=== PATIENT | female | born 1960 | race Caucasian/White ===

== ENCOUNTER 2017-03-08 13:22 | Emergency (ER) | payer OTHER ==
[2017-03-08 13:37] VITALS: BP 124/74; PULSE 79; RESP 18; TEMP 97.9
--- NOTE | 2017-03-08 14:48 | ED ---
General Adult HPI - General Chief complaint: Back Pain/Injury Stated complaint: back pain; radiculopathy Time Seen by Provider: 03/08/17 14:39 Source: patient, RN notes reviewed Mode of arrival: ambulatory Limitations: no limitations - History of Present Illness Initial comments: 56-year-old female presents to the emergency Department chief complaint of back pain. Patient states she suffers from chronic back pain. Patient states that she had an MRI of her back, back specialist in their unable to do procedures on her. They referred her to a pain specialist but she cannot get in until March 18. Her family care doctor was prescribing her Wellington for the pain however he is no longer able to prescribe further narcotics due to the fact that she needs to see a pain specialist. Patient states that she just would like something for pain. Patient states it radiates down her left leg. Patient states is exactly like her chronic pain. Patient states there is no changes. Patient denies any recent fever, chills, shortness of breath, chest pain, back pain, abdominal pain, nausea vomiting, numbness or tingling, dysuria or hematuria, constipation or diarrhea, headaches or visual changes, or any other current symptoms. - Related Data Previous Rx's Medication Instructions Recorded Hydrocodone/Acetaminophen [Wellington 1 each PO Q6HR PRN #20 tab 03/08/17 5-325] Allergies Allergy/AdvReac Type Severity Reaction Status Date / Time bacitracin Allergy Rash/Hives Verified 03/08/17 13:38 [From Neosporin ([id number])] ibuprofen Allergy Anaphylaxis Verified 03/08/17 13:38 neomycin Allergy Rash/Hives Verified 03/08/17 13:38 [From Neosporin ([id number])] Penicillins Allergy Itching Verified 03/08/17 13:38 polymyxin B Allergy Rash/Hives Verified 03/08/17 13:38 [From Neosporin ([id number])] acetaminophen AdvReac Unknown Verified 03/08/17 13:38 [From Darvocet-N] aspirin AdvReac Unknown Verified 03/08/17 13:38 propoxyphene AdvReac Unknown Verified 03/08/17 13:38 [From Darvocet-N] Review of Systems ROS Statement: Those systems with pertinent positive or pertinent negative responses have been documented in the HPI. ROS Other: All systems not noted in ROS Statement are negative. Past Medical History Additional Past Medical History / Comment(s): back pain History of Any Multi-Drug Resistant Organisms: None Reported Past Surgical History: No Surgical Hx Reported Past Psychological History: No Psychological Hx Reported Smoking Status: Current every day smoker Past Alcohol Use History: Rare Past Drug Use History: None Reported General Exam Limitations: no limitations General appearance: alert, in no apparent distress Eye exam: Present: normal appearance, PERRL, EOMI. Absent: scleral icterus, conjunctival injection, periorbital swelling ENT exam: Present: normal exam, mucous membranes moist Neck exam: Present: normal inspection. Absent: tenderness, meningismus, lymphadenopathy Respiratory exam: Present: normal lung sounds bilaterally. Absent: respiratory distress, wheezes, rales, rhonchi, stridor Cardiovascular Exam: Present: regular rate, normal rhythm, normal heart sounds. Absent: systolic murmur, diastolic murmur, rubs, gallop, clicks Extremities exam: Present: normal inspection, full ROM, normal capillary refill. Absent: tenderness, pedal edema, joint swelling, calf tenderness Back exam: Present: normal inspection Neurological exam: Present: alert, oriented X3 Psychiatric exam: Present: normal affect, normal mood Skin exam: Present: warm, dry, intact, normal color. Absent: rash Course Vital Signs 03/08/17 13:35 Temperature 97.9 F Pulse Rate 79 Respiratory 18 Rate Blood Pressure 124/74 O2 Sat by Pulse 99 Oximetry Medical Decision Making - Medical Decision Making 56-year-old female presents for treatment for her chronic pain. Attends. Small prescription of antibiotics. We did discuss follow-up consolidation family's questions fairly stated the [facility] management given the plan. At this time they will be discharged home. Disposition Clinical Impression: Chronic back pain Disposition: HOME SELF-CARE Condition: Stable Instructions: Chronic Back Pain (ED) Additional Instructions: Please use medication as discussed. Please follow up with family doctor if symptoms have not improved over the next two days. Please return to the emergency room if your symptoms increase or worsen or for any other concerns. Prescriptions: Hydrocodone/Acetaminophen [Wellington 5-325] 1 each PO Q6HR PRN #20 tab PRN Reason: Pain Referrals: Oswaldo Austin DO [Primary Care Provider] - 1-2 days Time of Disposition: 14:48
== END 2017-03-08 15:07 | disposition home or self-care (01) ==
LOC: EC 13:22
DX: G89.29 Other chronic pain (principal); M54.9 Dorsalgia, unspecified; F17.200 Nicotine dependence, unspecified, uncomplicated; Z88.0 Allergy status to penicillin; Z88.1 Allergy status to other antibiotic agents; Z88.5 Allergy status to narcotic agent; Z88.6 Allergy status to analgesic agent
CPT/HCPCS: 99283

== ENCOUNTER 2021-12-20 13:17 | Emergency (ER) | payer OTHER ==
[2021-12-20 14:28] VITALS: RESP 18; TEMP 98.1
--- NOTE | 2021-12-20 14:34 | ED ---
General Adult HPI - General Source: patient, RN notes reviewed Mode of arrival: ambulatory Limitations: no limitations <Sb Douglass - Last Filed: 12/20/21 14:33> <Tony oCok - Last Filed: 12/20/21 18:59> - General Chief complaint: Upper Respiratory Infection Stated complaint: Congestion, Cough, Diarrhea Time Seen by Provider: 12/20/21 14:02 - History of Present Illness Initial comments: This a 61-year-old female presents emergency Department chief complaint of cough and cold like symptoms 11 days. Patient states that she initially thought she had cold that she has not tested states that she got frightened now states that she has productive cough with green sputum, nasal congestion, nausea. She states she's had cold chills without known fever. Patient states she has no known lung disease though she states she just stopped smoking 12 days ago. Patient denies any sick contacts she states she feels very fatigued no chest pain. No palpitations. (Sb Douglass) Patient states that she has had cough and congestion since Father's Day. She states that she has been nauseated with brown watery diarrhea for the past 11 days. Also decreased appetite and now feels fatigued. States that she quit smoking when she got sick but was smoking a pack a day for several years. She denies any health problems. She did not get vaccinated against coronavirus and is positive here in the emergency room today. (Tony Cook) - Related Data Home Medications Medication Instructions Recorded Confirmed Black Cohosh 540 mg PO DAILY 12/20/21 12/20/21 Cholecalciferol [Vitamin D3 (25 25 mcg PO DAILY 12/20/21 12/20/21 Mcg = 1000 Iu)] HYDROcodone/APAP 10-325MG [Banner 1 tab PO QID PRN 12/20/21 12/20/21 10-325] Previous Rx's Medication Instructions Recorded Azithromycin [Zithromax] 500 mg PO DAILY 3 Days #3 tab 12/20/21 Allergies Allergy/AdvReac Type Severity Reaction Status Date / Time bacitracin Allergy Rash/Hives Verified 12/20/21 17:36 [From Neosporin ([id number])] ibuprofen Allergy Anaphylaxis Verified 12/20/21 17:36 neomycin Allergy Rash/Hives Verified 12/20/21 17:36 [From Neosporin ([id number])] Penicillins Allergy Anaphylaxis Verified 12/20/21 17:36 polymyxin B Allergy Rash/Hives Verified 12/20/21 17:36 [From Neosporin ([id number])] aspirin AdvReac Unknown Verified 12/20/21 17:36 propoxyphene AdvReac Unknown Verified 12/20/21 17:36 [From Darvocet-N] Review of Systems ROS Other: All systems not noted in ROS Statement are negative. <Sb Douglass - Last Filed: 12/20/21 14:33> ROS Other: All systems not noted in ROS Statement are negative. <Tony Cook - Last Filed: 12/20/21 18:59> ROS Statement: Those systems with pertinent positive or pertinent negative responses have been documented in the HPI. Past Medical History Additional Past Medical History / Comment(s): back pain History of Any Multi-Drug Resistant Organisms: None Reported Past Surgical History: No Surgical Hx Reported Past Psychological History: No Psychological Hx Reported Past Alcohol Use History: Rare Past Drug Use History: None Reported <Sb Douglass - Last Filed: 12/20/21 14:33> General Exam Limitations: no limitations General appearance: alert, in no apparent distress Head exam: Present: atraumatic, normocephalic, normal inspection Eye exam: Present: normal appearance, PERRL, EOMI. Absent: scleral icterus, conjunctival injection, periorbital swelling ENT exam: Present: mucous membranes moist, TM's normal bilaterally, normal external ear exam. Absent: normal oropharynx (Post nasal drainage) Neck exam: Present: normal inspection. Absent: tenderness, meningismus, lymphadenopathy Respiratory exam: Present: normal lung sounds bilaterally, decreased breath sounds. Absent: respiratory distress, wheezes, rales, rhonchi, stridor, prolonged expiratory Cardiovascular Exam: Present: regular rate, normal rhythm, normal heart sounds. Absent: systolic murmur, diastolic murmur, rubs, gallop, clicks GI/Abdominal exam: Present: soft, normal bowel sounds. Absent: distended, tenderness, guarding, rebound, rigid <Sb Douglass - Last Filed: 12/20/21 14:33> ENT exam: Present: normal oropharynx Respiratory exam: Absent: accessory muscle use, decreased breath sounds Extremities exam: Present: normal capillary refill. Absent: tenderness, pedal edema, calf tenderness Back exam: Absent: tenderness, CVA tenderness (R), CVA tenderness (L), rash noted Neurological exam: Present: alert, oriented X3 Psychiatric exam: Present: normal affect, normal mood Skin exam: Present: warm, dry, normal color. Absent: cyanosis, diaphoretic <Tony Cook - Last Filed: 12/20/21 18:59> Course Vital Signs 12/20/21 12/20/21 14:23 18:38 Temperature 98.1 F Pulse Rate 98 94 Respiratory 18 18 Rate Blood Pressure 108/70 114/61 O2 Sat by Pulse 98 96 Oximetry Medical Decision Making - Lab Data Result diagrams: 12/20/21 17:00 12/20/21 17:00 <Tony Cook - Last Filed: 12/20/21 18:59> - Medical Decision Making Patient presents with 11 days of productive green cough and congestion. She is positive for coronavirus She denies any other medical history. She is a pack-a-day smoker but quit smoking when she got sick 11 days ago. X-ray shows hyperinflation compatible with COPD. No evidence of infiltrate. There is also a 1.4cm RUL pulmonary nodule noted. Patient was notified of nodule and counseled on the importance of following up with her primary care doctor for reevaluation and monitoring of nodule. Patient and family member are agreeable and stated understanding. Due to patient's smoking history, XR compatible with COPD and productive cough with green sputum, she was placed on Zithromax. She was also given some Zofran starter pack for nausea. She states that she is feeling better after the IV fluids and Zofran. Lungs s ounds are clear and oxygen saturation is 98% on room air. She was encouraged to increase her fluid intake. Directed return to emergency room with any new concerning symptoms patient and family agreeable to this plan of care. Case discussed with Dr. Polanco. (Tony Cook) - Lab Data Lab Results 12/20/21 12/20/21 12/20/21 Range/Units 14:34 14:34 16:59 WBC (3.8-10.6) k/uL RBC (3.80-5.40) m/uL Hgb (11.4-16.0) gm/dL Hct (34.0-46.0) % MCV (80.0-100.0) fL MCH (25.0-35.0) pg MCHC (31.0-37.0) g/dL RDW (11.5-15.5) % Plt Count (150-450) k/uL MPV Neutrophils % % Lymphocytes % % Monocytes % % Eosinophils % % Basophils % % Neutrophils # (1.3-7.7) k/uL Lymphocytes # (1.0-4.8) k/uL Monocytes # (0-1.0) k/uL Eosinophils # (0-0.7) k/uL Basophils # (0-0.2) k/uL Sodium (137-145) mmol/L Potassium (3.5-5.1) mmol/L Chloride (98-107) mmol/L Carbon Dioxide (22-30) mmol/L Anion Gap mmol/L BUN (7-17) mg/dL Creatinine (0.52-1.04) mg/dL Est GFR (CKD-EPI)AfAm (>60 ml/min/1.73 sqM) Est GFR (CKD-EPI)NonAf (>60 ml/min/1.73 sqM) Glucose (74-99) mg/dL Calcium (8.4-10.2) mg/dL Total Bilirubin (0.2-1.3) mg/dL AST (14-36) U/L ALT (4-34) U/L Alkaline Phosphatase (38-126) U/L Total Protein (6.3-8.2) g/dL Albumin (3.5-5.0) g/dL Amylase (30-110) U/L Lipase (23-300) U/L Urine Color Yellow Urine Appearance Cloudy H (Clear) Urine pH 6.0 (5.0-8.0) Ur Specific Hazlet 1.036 H (1.001-1.035) Urine Protein 2+ H (Negative) Urine Glucose (UA) Negative (Negative) Urine Ketones 2+ H (Negative) Urine Blood Negative (Negative) Urine Nitrite Negative (Negative) Urine Bilirubin Negative (Negative) Urine Urobilinogen 3.0 (<2.0) mg/dL Ur Leukocyte Esterase Small H (Negative) Urine RBC 7 H (0-5) /hpf Urine WBC 7 H (0-5) /hpf Ur Squamous Epith Cells 3 (0-4) /hpf Urine Mucus Many H (None) /hpf Coronavirus (PCR) Detected A (Not Detectd) Influenza Type A RNA Not Detected (Not Detectd) Influenza Type B (PCR) Not Detected (Not Detectd) 12/20/21 12/20/21 Range/Units 17:00 17:00 WBC 15.0 H (3.8-10.6) k/uL RBC 4.10 (3.80-5.40) m/uL Hgb 13.7 (11.4-16.0) gm/dL Hct 39.5 (34.0-46.0) % MCV 96.5 (80.0-100.0) fL MCH 33.5 (25.0-35.0) pg MCHC 34.7 (31.0-37.0) g/dL RDW 11.5 (11.5-15.5) % Plt Count 261 (150-450) k/uL MPV 8.6 Neutrophils % 80 % Lymphocytes % 14 % Monocytes % 4 % Eosinophils % 1 % Basophils % 1 % Neutrophils # 12.0 H (1.3-7.7) k/uL Lymphocytes # 2.1 (1.0-4.8) k/uL Monocytes # 0.6 (0-1.0) k/uL Eosinophils # 0.1 (0-0.7) k/uL Basophils # 0.1 (0-0.2) k/uL Sodium 138 (137-145) mmol/L Potassium 3.7 (3.5-5.1) mmol/L Chloride 103 (98-107) mmol/L Carbon Dioxide 23 (22-30) mmol/L Anion Gap 12 mmol/L BUN 7 (7-17) mg/dL Creatinine 0.56 (0.52-1.04) mg/dL Est GFR (CKD-EPI)AfAm >90 (>60 ml/min/1.73 sqM) Est GFR (CKD-EPI)NonAf >90 (>60 ml/min/1.73 sqM) Glucose 118 H (74-99) mg/dL Calcium 9.1 (8.4-10.2) mg/dL Total Bilirubin 1.4 H (0.2-1.3) mg/dL AST 25 (14-36) U/L ALT 21 (4-34) U/L Alkaline Phosphatase 93 (38-126) U/L Total Protein 7.5 (6.3-8.2) g/dL Albumin 4.6 (3.5-5.0) g/dL Amylase 51 (30-110) U/L Lipase 41 (23-300) U/L Urine Color Urine Appearance (Clear) Urine pH (5.0-8.0) Ur Specific Haz[place] (1.001-1.035) Urine Protein (Negative) Urine Glucose (UA) (Negative) Urine Ketones (Negative) Urine Blood (Negative) Urine Nitrite (Negative) Urine Bilirubin (Negative) Urine Urobilinogen (<2.0) mg/dL Ur Leukocyte Esterase (Negative) Urine RBC (0-5) /hpf Urine WBC (0-5) /hpf Ur Squamous Epith Cells (0-4) /hpf Urine Mucus (None) /hpf Coronavirus (PCR) (Not Detectd) Influenza Type A RNA (Not Detectd) Influenza Type B (PCR) (Not Detectd) Disposition <Sb Douglass - Last Filed: 12/20/21 14:33> Is patient prescribed a controlled substance at d/c from ED?: No Time of Disposition: 17:50 <Tony Cook - Last Filed: 12/20/21 18:59> Clinical Impression: COVID-19, Diarrhea, Pulmonary nodule 1 cm or greater in diameter, Bronchitis Disposition: HOME SELF-CARE Condition: Good Instructions (If sedation given, give patient instructions): Acute Diarrhea (ED), COVID-19 (Coronavirus Disease 2019) (ED) Additional Instructions: Increase your fluid intake. Take antibiotics as prescribed and stop smoking. Follow-up with the primary care doctor regarding lung nodule in your right upper lung. Return to the emergency room with any new or concerning symptoms including difficulty breathing, or persistent nausea vomiting. Prescriptions: Azithromycin [Zithromax] 500 mg PO DAILY 3 Days #3 tab Referrals: None,Stated [Primary Care Provider] - 1-2 days
--- NOTE | 2021-12-20 15:08 | XR ---
EXAMINATION TYPE: XR chest 2V DATE OF EXAM: 12/20/2021 COMPARISON: NONE HISTORY: Shortness of breath TECHNIQUE: Frontal and lateral views of the chest are obtained. FINDINGS: Scattered senescent parenchymal changes noted. Hyperinflation compatible with COPD. No evidence for infiltrate. No evidence for atelectasis. 1.4 cm right upper lobe pulmonary nodule. Fu rther evaluation with CT is advised. Heart size is stable. Mediastinal structures are stable and grossly unremarkable. No evidence for hilar prominence. Degenerative changes dorsal spine. IMPRESSION: 1.4 cm right upper lobe pulmonary nodule. Further evaluation with CT is advised.
[2021-12-20] MEDS ORDERED: SODIUM CHLORIDE 0.9% 500 ML 500 ML IV STA (15:40)
[2021-12-20] MEDS ORDERED: ONDANSETRON 4 MG/2 ML VIAL IVP STA (16:25)
[2021-12-20 17:16] LABS: Basophils # (A) 0.1 k/uL (0-0.2); Basophils % (A) 1 %; Eosinophils # (A) 0.1 k/uL (0-0.7); Eosinophils % (A) 1 %; HCT 39.5 % (34.0-46.0); HGB 13.7 gm/dL (11.4-16.0); Lymphocytes # (A) 2.1 k/uL (1.0-4.8); Lymphocytes % (A) 14 %; MCH 33.5 pg (25.0-35.0); MCHC 34.7 g/dL (31.0-37.0); MCV 96.5 fL (80.0-100.0); Mean Platelet Volume 8.6; Monocytes # (A) 0.6 k/uL (0-1.0); Monocytes % (A) 4 %; Neutrophils % (A) 80 %; Platelet Count 261 k/uL (150-450); RDW 11.5 % (11.5-15.5)
[2021-12-20 17:25] LABS: ALT 21 U/L (4-34); AST 25 U/L (14-36); African American GFR (CKD) >90 (>60 ml/min/1.73 sqM); Albumin 4.6 g/dL (3.5-5.0); Alkaline Phosphatase 93 U/L (38-126); Amylase 51 U/L (30-110); Anion Gap 12 mmol/L; Blood Urea Nitrogen 7 mg/dL (7-17); Calcium 9.1 mg/dL (8.4-10.2); Carbon Dioxide 23 mmol/L (22-30); Chloride 103 mmol/L (98-107); Glucose 118 mg/dL (74-99); Lipase 41 U/L (23-300); Non-African American GFR(CKD) >90 (>60 ml/min/1.73 sqM); Potassium 3.7 mmol/L (3.5-5.1); Sodium 138 mmol/L (137-145); Total Bilirubin 1.4 mg/dL (0.2-1.3); Total Protein 7.5 g/dL (6.3-8.2)
[2021-12-20 17:25] LABS: Appearance,Urine Cloudy (Clear); Bilirubin,Urine Negative (Negative); Blood,Urine Negative (Negative); Color,Urine Yellow; Glucose,Urine (UA) Negative (Negative); Ketones,Urine 2+ (Negative); Leukocyte Esterase,Urine Small (Negative); Mucus,Urine Many /hpf; Nitrite,Urine Negative (Negative); Protein,Urine 2+ (Negative); RBC,Urine 7 /hpf (0-5); Specific Gravity,Urine 1.036 (1.001-1.035); Squamous Epithelial Cell,Urine 3 /hpf (0-4); WBC,Urine 7 /hpf (0-5)
[2021-12-20] MEDS ORDERED: ONDANSETRON 4 MG ODT STARTER PACK 2 TAB BTL PO STA (17:51)
[2021-12-20 18:39] VITALS: BP 114/61; PULSE 94
== END 2021-12-20 18:39 | disposition home or self-care (01) ==
LOC: EC 13:17
DX: U07.1 COVID-19 (principal); R19.7 Diarrhea, unspecified; Z88.6 Allergy status to analgesic agent; Z88.0 Allergy status to penicillin; Z91.018 Allergy to other foods; Z88.1 Allergy status to other antibiotic agents
CPT/HCPCS: 99284; 96374; 96361; 36415; 80053; 82150; 83690; 85025; 81001; 87502; 87635; 71046; J2405; S0119

== ENCOUNTER → 2022-01-29 | Outpatient (CLI) | payer OTHER ==
--- NOTE | 2022-01-29 10:19 | XR ---
EXAMINATION TYPE: XR wrist limited RT DATE OF EXAM: 01/29/2022 CLINICAL HISTORY: pain TECHNIQUE: Frontal, lateral images of the right wrist are obtained. COMPARISON: None. FINDINGS: There is no acute fracture/dislocation evident. The joint spaces appear within normal limits. The o verlying soft tissue appears unremarkable. IMPRESSION: There is no acute fracture or dislocation seen. ICD 10 NO FRACTURE, INITIAL EVALUATION
--- NOTE | 2022-01-29 10:21 | XR ---
EXAMINATION TYPE: XR hand limited RT DATE OF EXAM: 01/29/2022 CLINICAL HISTORY: pain TECHNIQUE: Frontal, lateral and oblique images of the right hand are obtained. COMPARISON: None. FINDINGS: There is no acute fracture/dislocation evident. The joint spaces appear within normal limi ts. The overlying soft tissue appears unremarkable. IMPRESSION: There is no acute fracture or dislocation ICD 10 NO FRACTURE, INITIAL EVALUATION
== END | disposition home or self-care (01) ==
LOC: RADXRMAIN 09:58
PROVIDERS: ATTEND Family Medicine
DX: M25.531 Pain in right wrist (principal); M79.641 Pain in right hand; W19.XXXA Unspecified fall, initial encounter

== ENCOUNTER → 2022-02-28 | Outpatient (CLI) | payer OTHER ==
--- NOTE | 2022-03-01 09:28 | CTL ---
EXAMINATION TYPE: CT Low Dose Lung DATE OF EXAM ORDERED: 02/28/2022 HISTORY: . Lung cancer screening CT DLP: 55.[address] CTDI: 1.60 mGy Automated exposure control for dose reduction was used. None SCREENING VISIT: COMPARISON: TECHNIQUE: Low dose computed tomography scan was performed through the chest at 1 mm thick sections a nd reconstructed images in multiple planes at 1 mm and [address] DIAGNOSTIC QUALITY: Satisfactory FINDINGS: There is biapical pleural thickening. There is a suspicious solid appearing spiculated mass right lung apex measuring 1.7 cm. No definite p athologic adenopathy There is a 5 to 6 mm nodule left upper lobe on image 112. Additional scattered 5 mm nodule in the ant erior segment left upper lobe and superior segment left lower lobe. 5 mm nodule is 29 right middle lo be No pleural effusion or pneumothorax. No focal pneumonia. Hypertrophic and degenerative changes spine. A basilar and central bronchiectasis noted. Aorta of normal caliber. Size normal. Mild coronary artery calcification. Structures of the upper abd omen demonstrate no definite abnormality. Suspect a large simple appearing cyst involving the left la teral kidney measuring 15 Hounsfield units and 3.4 cm IMPRESSION: 1. Highly suspicious 1.7 cm mass right lung apex suggestive of malignancy. 2. Additional subcentimeter nodules have somewhat vague pattern and morphology may be postinflammator y. 3. COPD CT LUNG RAD AND CT CHEST RECOMMENDATION: Lung-Rad 4B or 4X Very Suspicious: Follow-up PET/CT recomme nded. S Modifier (other clinically significant findings): S
== END | disposition home or self-care (01) ==
LOC: RADCTMAIN 12:15
PROVIDERS: ATTEND Family Medicine
DX: Z12.2 Encounter for screening for malignant neoplasm of respiratory organs (principal); J43.9 Emphysema, unspecified; R91.8 Other nonspecific abnormal finding of lung field; Z87.891 Personal history of nicotine dependence
CPT/HCPCS: 71271

== ENCOUNTER → 2022-03-15 | Outpatient (CLI) | payer OTHER ==
--- NOTE | 2022-03-15 13:34 | PE ---
EXAMINATION TYPE: PET CT fusion skull to thigh DATE OF EXAM: 03/15/2022 CLINICAL INDICATION:Female, 61 years old with history of R91.1 Lung nodule; TECHNIQUE: Following the intravenous administration of 3.2 mCi of F-18 FDG, whole body images are p erformed from the skull base to the midthigh. Images are reviewed on the computer in the coronal, ax ial, and sagittal planes. Reconstructed rotating images are created on independent workstation and r eviewed on the computer. A non-contrast CT is performed in conjunction with the PET scan. Glucose l evel 111 mg/dL COMPARISON: CT 02/28/2022, PET/CT None, FINDINGS: Mediastinal SUV mean is 1.4 Hepatic parenchyma SUV mean is 2.0. SKULL BASE AND NECK: No suspicious FDG activity. CHEST, MEDIASTINUM, AND HILAR REGION: * Right upper lung mass measuring 1.7 cm with max SUV 7.9. * No increased FDG activity within mediastinal lymph nodes. ABDOMEN AND PELVIS: No suspicious FDG activity. OSSEOUS STRUCTURES: No suspicious FDG activity. OTHER CT: Sclerosis of the coronary arteries and arterial vasculature. Few scattered clonic diverticu la present. Moderate emphysema changes in lung apices. The heart is mildly enlarged for size. IMPRESSION: Right upper lung mass metabolic activity consistent with primary malignancy. No evidence of metastati c disease at this time.
== END | disposition home or self-care (01) ==
LOC: RADPETMAIN 07:56
PROVIDERS: ATTEND Internal Medicine
DX: R91.8 Other nonspecific abnormal finding of lung field (principal)
CPT/HCPCS: 78815; A9552

== ENCOUNTER 2022-03-21 12:19 | Day surgery (SDC) | payer OTHER ==
[2022-03-20 12:06] VITALS: BMI 22.3
[~2022-03-21 12:19] MED LIST: ALBUTEROL NEB (CONC) 2.5 MG/0.5 ML INHALATION ONE; DEXAMETHASONE SOD PHOSPHATE 4 MG/ML 1 ML VIAL IV ONE; LIDOCAINE 1% (10MG/ML) FOR IV START INTRADERMA PRN; LIDOCAINE 2% (PF) 20 MG/ML 5 ML VIAL INHALATION ONE; LIDOCAINE VISCOUS 300 MG/15 ML CUP MUCOUS MEM ONE; SODIUM CHLORIDE 0.9% 1,000 ML IV SCH; fentaNYL (PF) 50 MCG/ML 2 ML AMP IV PRN
[2022-03-21] MEDS: LACTATED RINGERS 1,000 ML IV SCH ×2 (13:14→14:05)
--- NOTE | 2022-03-21 13:50 | CT ---
EXAMINATION TYPE: CT Chest drew Brennan Protocol DATE OF EXAM: 03/21/2022 COMPARISON: 03/15/2022, 92,020 HISTORY: bronchial navagation CT DLP: 642 mGycm Automated exposure control for dose reduction was used. FINDINGS: Limited exam is performed for preprocedural planning. FINDINGS: There is biapical pleural thickening. There is a suspicious solid appearing spiculated mass right lung apex measuring 1.7 cm. No definite pathologic adenopathy There is a 5 to 6 mm nodule left upper lobe. Additional scattered 5 mm nodule in the anterior segment left upper lobe and superior segment left lower lobe. 5 mm nodule right middle lobe No pleural effusion or pneumothorax. No focal pneumonia. Hypertrophic and degenerative changes spine. A basilar and central bronchiectasis noted. Aorta of nor mal caliber. Size normal. Mild coronary artery calcification. Structures of the upper abdomen demonstrate 0.8 cm left adrenal nodule. Suspect a large simple appear ing cyst involving the left kidney measuring 15 Hounsfield units and 3.4 cm IMPRESSION: 1. Highly suspicious 1.7 cm mass right lung apex suggestive of malignancy. 2. Additional subcentimeter nodules have somewhat vague pattern and morphology may be postinflammator y. 3. COPD . 4. Indeterminate 0.8 cm left adrenal nodule.
[2022-03-21] MEDS ORDERED: fentaNYL (PF) 50 MCG/ML 2 ML AMP ONE (14:07)
[2022-03-21] MEDS ORDERED: PHENYLEPHRINE-0.9% NACL SYG 1,000 MCG/10 ML SYRINGE ONE (14:07)
[2022-03-21] MEDS ORDERED: LIDOCAINE 4% LTA KIT (4 ML) TOPICAL ONE (14:07)
[2022-03-21] MEDS ORDERED: PROPOFOL 10 MG/ML 20 ML VIAL IV ONE (14:07)
[2022-03-21] MEDS ORDERED: LIDOCAINE 2% INJ 20 MG/ML (2 ML VIAL) ONE (14:07)
[2022-03-21] MEDS ORDERED: SUCCINYLCHOLINE CHLORIDE 200 MG/10 ML VIAL IV ONE (14:07)
[2022-03-21] MEDS ORDERED: KETAMINE 10 MG/ML 20 ML VIAL ONE (14:07)
--- NOTE | 2022-03-21 15:08 | P.PCN ---
Date of Procedure: 03/21/22 Preoperative Diagnosis: Right upper lobe mass Postoperative Diagnosis: Right upper lobe mass, mediastinal lymphadenopathy Procedure(s) Performed: Navigation bronchoscopy, transbronchial biopsy, transbronchial brushing and the bronchioloalveolar lavage of the right upper lobe mass EBUS bronchoscopy, bronchioloalveolar lavage of the right upper lobe Anesthesia: MICK Surgeon: Balbir Conroy Carpenter Helper #1: Dariela Houston Estimated Blood Loss (ml): 0 Pathology: other Condition: stable Disposition: same day Operative Findings: The patient had a preoperative computed tomography scan of the chest using the Veran protocol. The CAT scan images were reviewed. The right upper lobe opacity was identified it was mapped appropriately. The CAT scan images are uploaded into a USB and then into the [employer] Navigation tower. After obtaining the consent the patient was taken to the OR suite he was intubated and put on mechanical ventilation by anesthesia then the scope was advanced to the ET tube until the Trachea was seen and it was normal and then the zaria appears normal then the scope advanced to the left main and NISHI LB1- LB3 were seen and no endobronchial lesions were seen then the scope advanced to the lingula and the LB4 and LB5 were seen and no endobronchial lesions were seen the scope retracted and advanced to the left lower lobes LB6 to LB12 were seen one by one and no endobronchial lesions, then the scope was retracted back to the zaria and advanced to the Right main and RUL RB1 and RB2 and RB3 were seen one by one and no endobronchial lesions were seen the scope. The bronchoscope was then retracted and advanced to the BI and RML RB4 and RB5 were seen and no endobronchial lesions were seen then it was retracted and advanced to the RLL RB6 to RB12 were seen one by one and no endobronchial lesions. Navigation bronchoscopy was performed. The main zaria and the secondary zaria on the left were used as the reference points and appropriate calibration was done. Following that, using a navigation guidance , the bronchoscope was advanced to the right upper lobe anterior segment and various transbronchial biopsies and transbronchial brushings of the right upper lobe opacity was done without any complications. The bronchioloalveolar lavage of the right upper lobe was not given a total of 100 mL of fluid was infused and 23 was aspirated. Following that, the flexible bronchoscope was removed and the EBUS was introdu ignacia. The EBUS was used and the lymph nodes were examined. Direct measurement of the mediastinal lymph nodes included station for L, 10 L, 4R, 10 R and 11 are superior and inferior and the lymph nodes and all of the stations were nonenlarged and all of them were less than 5 mm in size. There was a irregular shape subcarinal lymph node, station 7 measuring 17 x 19 mm in size. Transbronchial needle aspirate of the subcarinal lymph node was done using EBUS guidance, using a 19-gauge needle.. The samples were sent for a evaluation subluxed. The EBUS bronchoscope was removed and the procedure was terminated. The patient was extubated and transferred to recovery in stable condition. Chest x-rays to follow. Discharge per anesthesia.
[2022-03-21 15:29] VITALS: TEMP 97
[2022-03-21 15:40] VITALS: RESP 16
--- NOTE | 2022-03-21 15:49 | XR ---
EXAMINATION TYPE: XR chest 1V DATE OF EXAM: 03/21/2022 COMPARISON: 12/20/2021, CT 03/21/2022 INDICATION: Pulmonary nodules TECHNIQUE: Single frontal view of the chest is obtained. FINDINGS: The heart size is normal. The pulmonary vasculature is normal. Diffuse infiltrates through the right upper lobe. The pulmonary nodule in the right upper lung field is not well-visualized on this exam. There is an additional infiltrate in the right lower lobe. IMPRESSION: 1. No pneumothorax post bronchoscopy. 2. Infiltrates in the right upper and lower lobes.
[2022-03-21 16:52] VITALS: BP 131/79; PULSE 81
== END 2022-03-21 17:07 | disposition home or self-care (01) ==
LOC: ORWHC2ENDO 12:19
PROVIDERS: ATTEND Internal Medicine Critical Care Medicine
DX: R91.1 Solitary pulmonary nodule (principal); R59.0 Localized enlarged lymph nodes; J44.9 Chronic obstructive pulmonary disease, unspecified; Z88.0 Allergy status to penicillin; Z88.8 Allergy status to other drugs, medicaments and biological substances
CPT/HCPCS: 31624; 31628; 31653; 88108; 88305; 88342; 88341; 71045; 71250; 31623; 31627; J0330; J3010; J2370; J2704; J2001; 31625; 31633

== ENCOUNTER → 2022-03-28 | Outpatient (CLI) | payer OTHER ==
[2022-03-28 11:36] LABS: Partial Thromboplastin Time 24.7 sec (22.0-30.0); Prothrombin Time 10.5 sec (9.0-12.0)
[2022-03-28 14:32] LABS: Basophils # (A) 0.09 X 10*3/uL (0.00-0.10); Basophils % (A) 1.2 %; Eosinophils % (A) 2.6 %; HCT 36.8 % (37.2-46.3); HGB 12.9 g/dL (12.0-15.0); Immature Grans, Automated 0.1 %; Lymphocytes # (A) 2.41 X 10*3/uL (0.90-5.00); MCH 32.5 pg (27.0-32.0); MCHC 35.1 g/dL (32.0-37.0); MCV 92.7 fL (80.0-97.0); Mean Platelet Volume 10.3 fL (9.5-12.2); Monocytes # (A) 0.51 X 10*3/uL (0.20-1.00); Monocytes % (A) 6.6 %; NRBC Per 100 WBC 0 /100 WBCS (0.0-0.0); Neutrophils # (A) 4.55 X 10*3/uL (1.80-7.70); Neutrophils % (A) 58.5 %; Platelet Count 310 X 10*3/uL (140-440); RBC 3.97 X 10*6/uL (4.10-5.20); RDW 11.8 % (11.5-14.5); WBC 7.77 X 10*3/uL (4.50-10.00)
[2022-03-28 15:09] LABS: African American GFR (CKD) 97.5 (60.0-200.0); Anion Gap 13.4 mmol/L (10.00-18.00); Blood Urea Nitrogen 11.9 mg/dL (9.0-27.0); Carbon Dioxide 25.8 mmol/L (20.0-27.5); Non-African American GFR(CKD) 84.1 (60.0-200.0); Potassium 4.5 mmol/L (3.5-5.5)
== END | disposition home or self-care (01) ==
LOC: LABPAT 10:27
PROVIDERS: ATTEND Thoracic Surgery (Cardiothoracic Vascular Surgery)
DX: Z01.818 Encounter for other preprocedural examination (principal); R91.1 Solitary pulmonary nodule; R94.31 Abnormal electrocardiogram [ECG] [EKG]
CPT/HCPCS: 80051; 82565; 82947; 84520; 85025; 85610; 85730; 93005

== ENCOUNTER 2022-04-04 05:44 | Inpatient (IN) | payer OTHER ==
[2022-04-04] MEDS ORDERED: ONDANSETRON 4 MG/2 ML VIAL ONE (06:06)
[2022-04-04] MEDS ORDERED: ONDANSETRON 4 MG/2 ML VIAL IVP ONE (06:22)
[2022-04-04] MEDS ORDERED: LACTATED RINGERS 1,000 ML IV SCH (06:22)
[2022-04-04] MEDS ORDERED: DEXAMETHASONE SOD PHOSPHATE 4 MG/ML 1 ML VIAL IV ONE (06:22)
[2022-04-04] MEDS ORDERED: LACTATED RINGERS 1,000 ML IV ONE ×3 (06:25→10:55)
[2022-04-04] MEDS ORDERED: MIDAZOLAM 2 MG/2 ML VIAL IVP ONE (06:55)
[2022-04-04] MEDS ORDERED: CLINDAMYCIN 900 MG in DEXTROSE 5% IN WATER 50 ML IVPB ONE ×2 (07:00)
[2022-04-04] MEDS ORDERED: DEXAMETHASONE SOD PHOSPHATE 4 MG/ML 1 ML VIAL ONE (07:25)
[2022-04-04] MEDS ORDERED: HYDROmorphone (PF) 1 MG/ML ONE (07:25)
[2022-04-04] MEDS ORDERED: fentaNYL (PF) 50 MCG/ML 2 ML AMP ONE (07:25)
[2022-04-04] MEDS ORDERED: PHENYLEPHRINE-0.9% NACL SYG 1,000 MCG/10 ML SYRINGE ONE (07:25)
[2022-04-04] MEDS ORDERED: ROPIVACAINE 5 MG/ML 30 ML VIAL ONE (07:25)
[2022-04-04] MEDS ORDERED: ROCURONIUM 10 MG/ML (5 ML VIAL) IV ONE (07:25)
[2022-04-04] MEDS ORDERED: LIDOCAINE 2% INJ 20 MG/ML (2 ML VIAL) ONE (07:25)
[2022-04-04] MEDS ORDERED: NEOSTIGMINE 1 MG/ML 10 ML VIAL ONE (07:25)
[2022-04-04] MEDS ORDERED: SODIUM CHLORIDE 0.9% (PF) 10 ML VIAL ONE (07:25)
[2022-04-04] MEDS ORDERED: SUCCINYLCHOLINE CHLORIDE 200 MG/10 ML VIAL IV ONE (07:25)
[2022-04-04] MEDS ORDERED: PROPOFOL 10 MG/ML 20 ML VIAL IV ONE (07:25)
[2022-04-04] MEDS ORDERED: GLYCOPYRROLATE 0.2 MG/ML 2 ML VIAL ONE (07:25)
[2022-04-04] MEDS ORDERED: BUPIVACAINE (PF) 0.5% 30 ML VIAL SQ ONE ×2 (08:21)
--- NOTE | 2022-04-04 10:50 | P.OP ---
Date of Procedure: 04/04/22 Preoperative Diagnosis: Non-small cell carcinoma right upper lobe Postoperative Diagnosis: Same Procedure(s) Performed: Robotic-assisted thoracoscopic right upper lobectomy with mediastinal lymph node dissection Anesthesia: PORTILLOA Surgeon: Leodan Tellez Estimated Blood Loss (ml): 15 IV fluids (ml): 1,000 Urine output (ml): 250 Pathology: other (Right upper lobe, lymph node stations R3, R4, level 7, R8, R 10, R 11) Condition: stable Disposition: PACU Indications for Procedure: 61-year-old female presents with a 1.7 cm spiculated nodule in the right upper lobe. There was no evidence of adenopathy by CT or PET criteria. The tumor that up with a SUV closed a. There was no evidence of metastasis by PET criteria. Bronchoscopy with transbronchial biopsy and EBUS was performed. The tumor was positive for non-small cell carcinoma. The lymph nodes were negative for metastasis. Elective lobectomy was recommended and scheduled. Operative Findings: There were moderate adhesions present in the chest cavity particularly anteriorly and in the fissures. This was taken down with electrocautery without difficulty. Was palpable mass in the posterior apical region of the right upper lobe. There was fairly extensive hilar adenopathy which was somewhat adherent. There was no evidence of tumor involvement. Upper and middle lobes inflated well following the procedure. Completion bronchoscopy demonstrated no evidence of bronchial stump issue. Description of Procedure: Patient was brought to the operating room. Gen. anesthesia was induced. She was intubated with a double-lumen endotracheal tube. This was positioned by anesthesia. It was secured and the patient turned in the left lateral decubitus position. She was appropriately positioned for robotic lobectomy. Right chest was sterilely prepped and draped. After timeout, single lung ventilation was initiated. Initial incision was 1 cm in the eighth interspace in the anterior axillary line. An 8 mm robotic port was placed. After confirming presence of the pleural space, CO2 insufflation was begun. 212 mm ports were put in anteriorly and posteriorly to this port in the same interspace. The anterior port was in an area of adhesions. Second 8 mm port was put in posteriorly just above the level of the fissure between the superior segment of the lower lobe posterior segment of the upper lobe. The robot was docked. We began by taking down the adhesions anteriorly near the anteriormost 12 mm port using electrocautery through the posterior 8 mm port. Following this the bipolar cautery was moved to the anterior arm and a tip up grasper was placed through the posterior arm posterior 12 mm port had a cavity a grasper. Dissection was begun posteriorly. There were no R9 lymph nodes evident. The R8 lymph nodes were dissected out and sent for permanent section. Dissection was carried superiorly and the level 7 lymph nodes were removed and sent for permanent section. Dissection was carried anteriorly onto the bronchus of the bifurcation of the right mainstem bronchus to upper lobe bronchus and bronchus intermedius was identified. R 11 lymph node in this area was dissected out. We encircled the upper lobe bronchus and ligated and divided it with a robotic green stapler. We then dissected out the pulmonary artery branches posteriorly and moved anteriorly. The branches of the superior pulmonary vein draining the middle lobe and upper lobe were identified. We encircled the branches draining the upper lobe and ligated and divided with a robotic vascular stapler. There was a large lymph node lying alongside the superior vena cava superior to the superior pulmonary vein. This was dissected out and sent as R3 lymph node. LYMPH nodes were then dissected out. Lantus of the pulmonary artery leading to the upper lobe (truncus anterior doses) were encircled and ligated and divided with a robotic vascular stapler. Further investigation and dissection could reveal no further branches to the upper lobe from the pulmonary artery. We therefore completed the fissure first anteriorly and then posteriorly using multiple firings of a robotic blue stapler. The lobe was thus completely . It was placed in an Endo Catch bag and retracted inferiorly. Dissection was carried out in the paratracheal region and the R4 lymph nodes were resected. This point the robot was undocked. The working port was enlarged and the lobectomy specimen in the Endo Catch bag was brought out through the chest wall this enlarged incision. The chest was irrigated with warm water and checked for air leak. There was some air leak in the hilum superiorly and posteriorly.'s appeared to be coming from the lung tissue but to be certain we performed bronchoscopy examining the stump of the bronchus very carefully. There was no evidence of any disruption of the bronchial stump or injury to the mainstem or bronchus intermedius. We therefore sprayed some pro-gel in the area and the airleak appeared to be fairly well controlled. 28-Hebrew chest tube was placed through separate stab incision anteriorly and positioned posterior apically and secured with 0 Ethibond suture. Lung was again reinflated under thoracoscopic visualization. Both lobes were noted to expand extremely well. This thoracoscope was removed and the incisions closed with layers of Vicryl suture. Rib blocks were performed at the level incisions posteriorly with half percent Marcaine. Skin glue and dry sterile dressings were applied the patient was turned supine and extubated and transferred to recovery in stable condition.
[2022-04-04] MEDS: HYDROmorphone 0.5 MG/0.5 ML SYRINGE IVP PRN ×4 (11:14→12:15)
--- NOTE | 2022-04-04 11:53 | XR ---
EXAMINATION TYPE: XR chest 1V portable DATE OF EXAM: 04/04/2022 Comparison: 03/21/2022 Clinical History: 61-year-old female post right upper lobectomy Findings: Heart normal size. Aorta and pulmonary vasculature within normal limits. Postsurgical change right he mithorax. Some subcutaneous emphysema especially at the base of the neck and right axilla is noted. A pically directed right-sided chest tube is present. No appreciable pneumothorax. There is new patchy opacity at the periphery of the left base. Impression: 1. Interval right upper lobectomy. A chest tube is in place. No appreciable pneumothorax. 2. New opacity at the left base. Correlate to exclude developing infiltrate including the possibility of aspiration.
[2022-04-04] MEDS ORDERED: METOCLOPRAMIDE 5 MG/ML 2 ML VIAL IVP PRN (13:17)
[2022-04-04] MEDS ORDERED: IPRATROPIUM-ALBUTEROL 3 ML NEB IH PRN (13:17)
[2022-04-04] MEDS ORDERED: ONDANSETRON 4 MG/2 ML VIAL IVP PRN (13:17)
[2022-04-04 13:50] LABS: Basophils % (A) 0 %; Eosinophils # (A) 0.1 k/uL (0-0.7); Eosinophils % (A) 1 %; HCT 36.1 % (34.0-46.0); HGB 12.5 gm/dL (11.4-16.0); Lymphocytes # (A) 0.7 k/uL (1.0-4.8); Lymphocytes % (A) 4 %; MCH 33.1 pg (25.0-35.0); MCHC 34.5 g/dL (31.0-37.0); MCV 95.9 fL (80.0-100.0); Mean Platelet Volume 7.8; Monocytes # (A) 0.6 k/uL (0-1.0); Monocytes % (A) 4 %; Neutrophils # (A) 13.5 k/uL (1.3-7.7); Neutrophils % (A) 91 %; Platelet Count 246 k/uL (150-450); RBC 3.77 m/uL (3.80-5.40); WBC 14.9 k/uL (3.8-10.6)
[2022-04-04] MEDS: traMADol 50 MG TAB PO SCH ×2 (13:54→20:13)
[2022-04-04] MEDS: LACTATED RINGERS 1,000 ML IV SCH ×2 (13:56→20:29)
[2022-04-04 14:03] LABS: African American GFR (CKD) >90 (>60 ml/min/1.73 sqM); Anion Gap 11 mmol/L; Blood Urea Nitrogen 8 mg/dL (7-17); Calcium 8.7 mg/dL (8.4-10.2); Carbon Dioxide 23 mmol/L (22-30); Chloride 103 mmol/L (98-107); Glucose 150 mg/dL (74-99); Non-African American GFR(CKD) >90 (>60 ml/min/1.73 sqM); Potassium 3.7 mmol/L (3.5-5.1); Sodium 137 mmol/L (137-145)
[2022-04-04] MEDS: ACETAMINOPHEN IV (For NPO) 1,000 MG in EMPTY BAG 1 BAG IVPB SCH ×2 (14:11→20:13)
[2022-04-04] MEDS ORDERED: CLINDAMYCIN 900 MG in DEXTROSE 5% IN WATER 50 ML IVPB SCH ×2 (16:00)
--- NOTE | 2022-04-04 16:11 | P.CNPUL ---
History of Present Illness Consult date: 04/04/22 Chief complaint: Lung cancer, lobectomy History of present illness: A very pleasant 61-year-old female patient The patient was in a good state of health. She is a chronic smoker and she quit smoking approximately 2 months ago. She was infected with COVID 19 and she was having some respiratory symptoms and for that reason a chest x-ray was done that showed a right upper lobe mass. Following that, the patient was referred to a low-dose CAT scan of the chest this was done on 02/28/2022 and the patient was found to have a highly suspicious 1.7 cm mass in the right apex very suggestive of malignancy. There was some additional subcentimeter nodules somewhat vague pattern and morphology most likely post inflammatory in the left upper lobe area. There was also a large simple appearing cyst involving the left kidney measuring 3.4 cm in size. Some limited basilar central bronchiectasis was also noted. Following that, the patient underwent a PET/CT that was done on 03/15/2022 and the PET/CT showed a right upper lobe mass measuring 1.7 cm in size, metabolically avid with an SUV of 7.9. No increased FDG activity within the mediastinal lymph nodes. No other metabolic activity throughout the body. Based on that, the patient was referred to me for further evaluation Clinically, the patient is doing well. She denies having any other complaints. She is asymptomatic. No shortness of breath. With exercise capacity. No cough no sputum production no chest tightness no wheezing no weight loss no previous history of malignancy. She has smoked marijuana and tobacco for years. 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 Currently she is living in [facility]. No other complaints. No complaints right The patient had a PFT in my office and the patient was found to have an FEV1 of 79% of predicted and diffusion capacity of 53% predicted. I performed a bronchoscopy on this patient and transbronchial biopsy of the right upper lobe mass was consistent with adenocarcinoma. He was bronchoscopy yielded negative mediastinal lymph node involvement. Based on that, the patient was referred to thoracic surgery and the patient underwent a right upper lobe lobectomy today. Currently she is postop day #0. Her postop chest x-ray shows adequate expansion of the right lung. There is no evidence of any pneumothorax. There is some subcutaneous emphysema in the right supraclavicular area. The right-sided chest tube is in a good location. There is positive air leak. There is a right-sided chest tube in place. Current pulse ox is 99% of oxygen by nasal cannula. She is hemodynamically stable. She has adequate pain control for now. The white cell, that 14.0 with a hemoglobin of 12.5. Will monitor electrolytes. She underwent a robotic-assisted right upper lobe resection with mediastinal lymph node dissection. Estimated blood loss was approximately 15 mL. Review of Systems Constitutional: Reports as per HPI Eyes: denies as per HPI, denies blurred vision, denies bulging eye, denies decreased vision, denies diplopia, denies discharge, denies dry eye, denies irritation, denies itching, denies pain, denies photophobia, denies loss of peripheral vision, denies loss of vision, denies tunnel vision/blind spots Ears: deny: decreased hearing, ear discharge, earache, tinnitus Ears, nose, mouth and throat: Reports as per HPI Breasts: absent: as per HPI, change in shape, gynecomastia, masses, nipple discharge, pain, skin changes, swelling Cardiovascular: Reports as per HPI Respiratory: Reports dyspnea Gastrointestinal: Reports as per HPI Genitourinary: Reports as per HPI Menstruation: Reports as per HPI Musculoskeletal: Reports as per HPI Musculoskeletal: absent: ankle pain, ankle stiffness, ankle swelling, as per HPI, elbow pain, elbow stiffness, elbow swelling, foot pain, foot stiffness, f oot swelling, hand pain, hand stiffness, hand swelling, hip pain, hip stiffness, hip swelling, knee pain, knee stiffness, knee swelling, shoulder pain, shoulder stiffness, shoulder swelling, wrist pain, wrist stiffness, wrist swelling Integumentary: Reports as per HPI Psychiatric: Reports as per HPI Endocrine: Reports as per HPI Hematologic/Lymphatic: Reports as per HPI Allergic/Immunologic: Reports as per HPI Past Medical History Past Medical History: Cancer, COPD, Musculoskeletal Disorder Additional Past Medical History / Comment(s): low back pain, herniated disc,. 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 CERVICAL CANCER AGE 27 History of Any Multi-Drug Resistant Organisms: None Reported Past Surgical History: No Surgical Hx Reported Additional Past Surgical History / Comment(s): CONIZATION FOR CERVICAL CANCER, recent bronchoscopy Past Anesthesia/Blood Transfusion Reactions: No Reported Reaction Smoking Status: Former smoker - Past Family History Mother Family Medical History: No Reported History Medications and Allergies Home Medications Medication Instructions Recorded Confirmed Type HYDROcodone/APAP 10-325MG [[place] 1 tab PO QID PRN 12/20/21 04/04/22 History 10-325] Calcium Carbonate/Vitamin D3 1 each PO DAILY 03/20/22 04/04/22 History [Calcium 600 mg-Vit D3 10 mcg (400 Unit)] Allergies Allergy/AdvReac Type Severity Reaction Status Date / Time bacitracin Allergy Rash/Hives Verified 04/04/22 06:07 [From Neosporin ([id number])] ibuprofen Allergy Anaphylaxis Verified 04/04/22 06:07 neomycin Allergy Rash/Hives Verified 04/04/22 06:07 [From Neosporin ([id number])] Penicillins Allergy Anaphylaxis Verified 04/04/22 06:07 polymyxin B Allergy Rash/Hives Verified 04/04/22 06:07 [From Neosporin ([id number])] aspirin AdvReac STOMACH Verified 04/04/22 06:07 BLEEDING propoxyphene AdvReac Unknown Verified 04/04/22 06:07 [From Darvocet-N] Physical Exam Vitals: Vital Signs Temp Pulse Pulse Resp BP BP BP 04/04/22 14:32 94 20 151/76 04/04/22 14:05 95 20 152/87 04/04/22 13:50 100 20 04/04/22 13:35 96 20 142/82 04/04/22 13:20 100 20 156/92 04/04/22 13:05 96.2 F L 98 20 135/83 04/04/22 12:30 96 20 134/80 04/04/22 12:10 95 20 132/81 04/04/22 11:55 90 18 159/94 04/04/22 11:40 81 17 168/82 04/04/22 11:25 91 18 166/80 04/04/22 11:10 86 18 182/85 04/04/22 10:55 97.0 F L 86 18 167/79 04/04/22 07:10 91 16 124/75 04/04/22 06:10 97.6 F 97 16 157/93 BP Pulse Ox 04/04/22 14:32 99 04/04/22 14:05 99 04/04/22 13:50 98 04/04/22 13:35 99 04/04/22 13:20 99 04/04/22 13:05 95 04/04/22 12:30 100 04/04/22 12:10 100 04/04/22 11:55 164/88 100 04/04/22 11:40 166/82 99 04/04/22 11:25 170/91 99 04/04/22 11:10 170/86 98 04/04/22 10:55 100 04/04/22 07:10 99 04/04/22 06:10 98 Intake and Output 04/04/22 04/04/22 04/04/22 06:59 14:59 22:59 Intake Total 200 1750 Output Total 265 Balance 200 1485 Intake: IV 200 1650 Intake, IV Titration 100 Amount ACETAMINOPHEN IV (For NPO 100 ) 1,000 mg In Empty Bag 1 bag @ 400 mls/hr IVPB Q6H [facility] Rx#:[id number] Output: Urine 250 Estimated Blood Loss 15 Other: Voiding Method Indwelling Catheter Weight 55 kg The patient is calm and comfortable and she is currently she is on 2 L, and mild distress due to pain across the right chest wall. Head exam was generally normal. There was no scleral icterus or corneal arcus. Mucous membranes were moist. Neck was supple and without jugular venous distension, thyromegaly, or carotid bruits. Carotids were easily palpable bilaterally. There was no adenopathy. Lungs: Diminished on the right compared to the left. Surgical wound site is dry clean and intact.. The patient has a right-sided chest tube in place. There is positive air leak through the chest tube. The output has been only 100 mL since arrival from the operating room. Cardiac exam revealed the PMI to be normally situated and sized. The rhythm was regular and no extrasystoles were noted during several minutes of auscultation. The first and second heart sounds were normal and physiologic splitting of the second heart sound was noted. There were no murmurs, rubs, clicks, or gallops. Abdominal exam revealed normal bowel sounds. The abdomen was soft, non-tender, and without masses, organomegaly, or appreciable enlargement of the abdominal aorta. Examination of the extremities revealed easily palpable radial, femoral and pedal pulses. There was no cyanosis, clubbing or edema. Examination of the skin revealed no evidence of significant rashes, suspicious appearing nevi or other concerning lesions. Neurologically, the patient is awake and alert and the patient does not have any focal neurological deficit. Cranial nerves are essentially intact. Results - Laboratory Findings CBC and BMP: 04/04/22 13:32 10 13:32 Abnormal lab findings: Abnormal Labs 04/04/22 10 13:32 13:32 WBC 14.9 H RBC 3.77 L Neutrophils # 13.5 H Lymphocytes # 0.7 L Creatinine 0.41 L Glucose 150 H - Diagnostic Findings Chest x-ray: image reviewed Assessment and Plan Plan: 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 Patient is postop day #0, the patient has a right-sided chest tube with a positive air leak, platysma and only 100 mL of bloody emesis of arrival from the operating room Acute hypoxic respiratory failure, expected outcome of lobectomy and the patient is on O2 at 2 L/m nasal cannula. Right-sided air leak through the right-sided chest tube COPD with a preoperative FEV1 of 79% of predicted Chronic smoker. Remote history of cervical cancer Previous history of colon 19 infection, recovered Plan Provide the patient incentive spirometer spirometer Titrate Oxygen flow to maintain a saturation above 90% Khang sheridan on the clock 4 times a day Give the right-sided chest tube in place Moderate air leak and the fluid output Daily chest x-rays Provide patient adequate pain control with Dilaudid and Minoa
[2022-04-04] MEDS: IPRATROPIUM-ALBUTEROL 3 ML NEB IH SCH ×3 (16:13→20:03)
--- NOTE | 2022-04-04 16:20 | P.CONS ---
History of Present Illness - Reason for Consult Consult date: 04/04/22 - History of Present Illness Patient is a 61-year-old female with PMH of COPD, former smoker, history of right upper lobe adenocarcinoma presented to [facility] for robotic-assisted right upper lobe resection with mediastinal lymph node dissection. [facility] has been consulted for medical management of this patient. Patient was seen and examined postoperatively. Patient reports well-controlled pain in her right chest. Pain is 5 out of 10 in severity. Pain is worsened with deep inspiration. She has a right-sided chest tube in place. She denies any headache, lower extremity edema, nausea or vomiting, fever or chills, cough, shortness of breath, palpitations, changes in urination or bowel habits. No changes in appetite or weight. She denies any dizziness, numbness/weakness/tingling of the extremities. Review of systems is performed and is negative except above. General: non toxic, no distress, appears at stated age Derm: warm, dry Head: atraumatic, normocephalic, symmetric Eyes: EOMI, no lid lag, anicteric sclera Mouth: no lip lesion, mucus membranes moist Cardiovascular: S1S2 reg, no murmur, positive posterior tibial pulse bilateral, Lungs: Decreased breath sounds on the right, surgical dressing clean dry and intact, right-sided chest tube to suction, no rhonchi, no rales , no accessory muscle use Abdominal: soft, nontender to palpation, no guarding, no appreciable organomegaly Ext: no gross muscle atrophy, no edema, no contractures Neuro: no focal neuro deficits Psych: Alert, oriented, appropriate affect #Leukocytosis #Acute hypoxic respiratory failure #COPD not in acute exacerbation #Former smoker #Status post robotic-assisted right upper lobe resection with mediastinal lymph node dissection POD 0 Her leukocytosis is likely reactive. There are no signs of acute infection. Plans to repeat CBC tomorrow morning. Patient will be given supplemental O2 to maintain O2 saturation greater than 92%. DuoNeb as needed for shortness of breath and wheezing. Incentive spirometer. Management as per Cardiothoracic surgery. DVT prophylaxis: [Heparin] Discussed with: [Patient] Anticipated discharge: [Depending on clinical course] Anticipated discharge place: [Home] A total of [30] minutes was spent on the care of this complex patient more than 50% of the time was spent in counseling and care coordination. Patient names her decision maker if she can't make decisions for herself. Patient would like to be full code. Past Medical History Past Medical History: Cancer, COPD, Musculoskeletal Disorder Additional Past Medical History / Comment(s): low back pain, herniated disc,. 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 CERVICAL CANCER AGE 27 History of Any Multi-Drug Resistant Organisms: None Reported Past Surgical History: No Surgical Hx Reported Additional Past Surgical History / Comment(s): CONIZATION FOR CERVICAL CANCER, recent bronchoscopy Past Anesthesia/Blood Transfusion Reactions: No Reported Reaction Smoking Status: Former smoker - Past Family History Mother Family Medical History: No Reported History Medications and Allergies Home Medications Medication Instructions Recorded Confirmed Type HYDROcodone/APAP 10-325MG [[place] 1 tab PO QID PRN 12/20/21 04/04/22 History 10-325] Calcium Carbonate/Vitamin D3 1 each PO DAILY 03/20/22 04/04/22 History [Calcium 600 mg-Vit D3 10 mcg (400 Unit)] Allergies Allergy/AdvReac Type Severity Reaction Status Date / Time bacitracin Allergy Rash/Hives Verified 04/04/22 06:07 [From Neosporin ([id number])] ibuprofen Allergy Anaphylaxis Verified 04/04/22 06:07 neomycin Allergy Rash/Hives Verified 04/04/22 06:07 [From Neosporin ([id number])] Penicillins Allergy Anaphylaxis Verified 04/04/22 06:07 polymyxin B Allergy Rash/Hives Verified 04/04/22 06:07 [From Neosporin ([id number])] aspirin AdvReac STOMACH Verified 04/04/22 06:07 BLEEDING propoxyphene AdvReac Unknown Verified 04/04/22 06:07 [From Darvocet-N] Physical Exam Vitals: Vital Signs Temp Pulse Pulse Pulse Resp BP BP 04/04/22 16:18 96 04/04/22 14:32 94 20 151/76 04/04/22 14:05 95 20 152/87 04/04/22 13:50 100 20 04/04/22 13:35 96 20 142/82 04/04/22 13:20 100 20 156/92 04/04/22 13:05 96.2 F L 98 20 135/83 04/04/22 12:30 96 20 134/80 04/04/22 12:10 95 20 132/81 04/04/22 11:55 90 18 159/94 04/04/22 11:40 81 17 168/82 04/04/22 11:25 91 18 166/80 04/04/22 11:10 86 18 182/85 04/04/22 10:55 97.0 F L 86 18 167/79 04/04/22 07:10 91 16 04/04/22 06:10 97.6 F 97 16 BP BP Pulse Ox 04/04/22 16:18 04/04/22 14:32 99 04/04/22 14:05 99 04/04/22 13:50 98 04/04/22 13:35 99 04/04/22 13:20 99 04/04/22 13:05 95 04/04/22 12:30 100 04/04/22 12:10 100 04/04/22 11:55 164/88 100 04/04/22 11:40 166/82 99 04/04/22 11:25 170/91 99 04/04/22 11:10 170/86 98 04/04/22 10:55 100 04/04/22 07:10 124/75 99 04/04/22 06:10 157/93 98 Intake and Output 04/04/22 04/04/22 04/04/22 06:59 14:59 22:59 Intake Total 200 1750 Output Total 265 Balance 200 1485 Intake: IV 200 1650 Intake, IV Titration 100 Amount ACETAMINOPHEN IV (For NPO 100 ) 1,000 mg In Empty Bag 1 bag @ 400 mls/hr IVPB Q6H [facility] Rx#:[id number] Output: Urine 250 Estimated Blood Loss 15 Other: Voiding Method Indwelling Catheter Weight 55 kg Results CBC & Chem 7: 04/04/22 13:32 04/04/22 13:32 Labs: Abnormal Lab Results - Last 24 Hours (Table) 04/04/22 04/04/22 Range/Units 13:32 13:32 WBC 14.9 H (3.8-10.6) k/uL RBC 3.77 L (3.80-5.40) m/uL Neutrophils # 13.5 H (1.3-7.7) k/uL Lymphocytes # 0.7 L (1.0-4.8) k/uL Creatinine 0.41 L (0.52-1.04) mg/dL Glucose 150 H (74-99) mg/dL
[2022-04-04] MEDS: HEPARIN SODIUM,PORCINE/PF 5,000 UNIT/0.5 ML SYRINGE SQ SCH (18:54)
[2022-04-04] MEDS: FORMOTEROL FUMARATE 20 MCG/2 ML NEBU INHALATION SCH (20:03)
[2022-04-04] MEDS: HYDROcodone/APAP 10-325MG 1 EACH TAB PO PRN (22:36)
[2022-04-05] MEDS ORDERED: HYDROcodone/APAP 10-325MG 1 EACH TAB ONE (01:50)
[2022-04-05] MEDS: HEPARIN SODIUM,PORCINE/PF 5,000 UNIT/0.5 ML SYRINGE SQ SCH ×4 (05:08→23:36)
[2022-04-05] MEDS: HYDROcodone/APAP 10-325MG 1 EACH TAB PO PRN ×3 (05:13→18:52)
--- NOTE | 2022-04-05 07:31 | XR ---
EXAMINATION TYPE: XR chest 1V DATE OF EXAM: 04/05/2022 COMPARISON: 04/04/2022 INDICATION: Postright upper lobectomy TECHNIQUE: Single frontal view of the chest is obtained. FINDINGS: The heart size is normal. The pulmonary vasculature is normal. There is a small infiltrate at the left phrenic angle increasing comparison. Correlate for atelectasi s. Right-sided chest tube is present. Small pneumothorax present medially. Small amount subcutaneous emphysema is at the right apex. IMPRESSION: 1. Left lower lobe costophrenic angle infiltrate pericolic atelectasis, worsening for comparison. 2. Minimal medial pneumothorax. Right-sided chest tube in position.
[2022-04-05] MEDS: traMADol 50 MG TAB PO SCH ×4 (08:43→20:59)
[2022-04-05] MEDS: FORMOTEROL FUMARATE 20 MCG/2 ML NEBU INHALATION SCH ×2 (08:50→19:28)
[2022-04-05] MEDS: IPRATROPIUM-ALBUTEROL 3 ML NEB IH SCH ×4 (08:50→19:28)
[2022-04-05 09:25] LABS: Basophils % (A) 0 %; Eosinophils % (A) 0 %; HCT 34.1 % (34.0-46.0); HGB 11.6 gm/dL (11.4-16.0); Lymphocytes # (A) 1.7 k/uL (1.0-4.8); Lymphocytes % (A) 14 %; MCH 32.6 pg (25.0-35.0); MCV 95.8 fL (80.0-100.0); Mean Platelet Volume 7.9; Monocytes # (A) 0.8 k/uL (0-1.0); Monocytes % (A) 6 %; Neutrophils # (A) 9.3 k/uL (1.3-7.7); Neutrophils % (A) 78 %; Platelet Count 252 k/uL (150-450); RBC 3.56 m/uL (3.80-5.40); RDW 12.1 % (11.5-15.5)
[2022-04-05 09:33] LABS: African American GFR (CKD) >90 (>60 ml/min/1.73 sqM); Anion Gap 9 mmol/L; Blood Urea Nitrogen 9 mg/dL (7-17); Carbon Dioxide 28 mmol/L (22-30); Chloride 99 mmol/L (98-107); Glucose 135 mg/dL (74-99); Non-African American GFR(CKD) >90 (>60 ml/min/1.73 sqM); Sodium 136 mmol/L (137-145)
--- NOTE | 2022-04-05 09:39 | P.ANPRN ---
Procedure Note - Anesthesia - Nerve Block Performed Right Erector Spinae Single Time Out Performed: Yes Date of Procedure: 04/04/22 Procedure Start Time: 06:54 Procedure Stop Time: 06:59 Location of Patient: PreOp Indication: Acute Post-Operative Pain, Requested by Surgeon Sedation Type: Sedate with meaningful contact maintained Preparation: Sterile Prep Position: Prone Needle Types: Pajunk Needle Gauge: 21 Ultrasound used to visualize needle placement: Yes Ultrasound used to observe medication spread: Yes Blood Aspirated: No Pain Paresthesia on Injection Noted: No Resistance on Injection: Normal Image Stored and Saved: Yes Events: Uneventful and Well Tolerated (ropivacaine 0.5% 15ccplus dexamethasone 4 mg plus normal saline 10 mL given at T4 on the right side)
--- NOTE | 2022-04-05 09:42 | P.ANPRN ---
Procedure Note - Anesthesia - Invasive Line Right Arterial Line Time Out Performed: Yes Date of Procedure: 04/04/22 Location of Patient: PreOp Preparation: Sterile Prep, Sterile Dressing Arterial Line Location: Radial Ultrasound Used: No Purpose - Visualization and Identification of Vasculature: No Narrative: Central line placement per sterile protocol utilized.
--- NOTE | 2022-04-05 10:24 | P.PN ---
Subjective Progress Note Date: 04/05/22 Principal diagnosis: Non-small cell carcinoma right upper lobe. Past medical history significant for chronic nicotine dependence quit smoking approximately 2 months ago, COVID-19 infection in November 2021, history of marijuana use, COPD with preoperative FEV1 79% of predicted value, remote history of cervical cancer, and history of low back pain with herniated disks in which she takes Buckholts for pain at home. POD #1 robotic assisted thoracoscopic right upper lobectomy with mediastinal lymph node dissection. The patient was seen and examined at her bedside on the cardiac stepdown unit today 04/05/2022. Currently she is laying in bed, is awake, alert, oriented 3 and is in no acute apparent distress. She denies any plates of shortness of breath and she is complaining of some surgical type pain to her chest tube site with taking a deep breath. She reports the pain radiates to her right shoulder. Currently she rates her pain 5 out of 10 on the pain scale. She remains hemodynamically stable and is currently on no inotropic pressor support. Oxygen saturation are 99% on 2 L nasal cannula and she is achieving 500-750 mL on her incentive spirometry with much encouragement. Right pleural chest tube remains in place to low continuous wall suction -20 cm H2O. Continuous air leak is present on suction. Draining thin serosanguineous drainage with 150 mL output in the last 8 hours and 260 mL output since surgery. With the chest tube removed from suction she does have an intermittent air leak present with coughing. She was assisted up to the bedside chair and reports that she did feel a little more comfortable sitting up in the chair then in bed. Remote tel emetry is showing normal sinus tachycardia heart rate 100 BPM. Borges catheter remains in place for accurate I's and O's with good urine output. Laboratory results this morning show a WBC count of 12.0, hemoglobin 11.6, hematocrit 34.1, platelets 252, sodium 136, potassium 4.0, BUN 9, creatinine 0.53, glucose 135 and calcium 9.0. Chest x-ray report from this morning a minimal medial right- sided pneumothorax with a right-sided chest tube in good position. Objective - Vital Signs Vital signs: Vital Signs Temp 98.6 F 04/05/22 04:00 Pulse 90 04/05/22 09:12 Resp 14 04/05/22 04:00 BP 155/79 04/05/22 04:00 Pulse Ox 98 04/05/22 08:51 FiO2 Intake & Output 04/04/22 04/05/22 04/05/22 18:59 06:59 18:59 Intake Total 1750 930 0 Output Total 705 250 150 Balance 1045 680 -150 Intake: IV 1650 Intake, IV Titration 100 630 Amount ACETAMINOPHEN IV (For NPO 100 100 ) 1,000 mg In Empty Bag 1 bag @ 400 mls/hr IVPB Q6H [facility] Rx#:[id number] Lactated Ringers 1,000 ml 480 @ 40 mls/hr IV .Q24H [facility] Rx#:[id number] ceFAZolin 2 gm In Sodium 50 Chloride 0.9% 50 ml @ 100 mls/hr IVPB Q8H [facility] Rx#: [id number] Oral 300 0 Output: Chest Tube Drainage 140 Chest Tube Right Right 140 Pleural/Mediastinal Drainage 150 Right Chest 150 Urine 550 250 Estimated Blood Loss 15 Other: Voiding Method Indwelling Catheter Indwelling Catheter - Exam CONSTITUTIONAL: Sitting up to the bedside chair on the cardiac stepdown unit, complaining of pain with taking a deep breath to her chest tube insertion site and to her right shoulder, rating her pain 5 out of 10 on the pain scale, cooperative, no apparent acute distress. HEENT: Neck is supple, no JVD, no lymphadenopathy. RESPIRATORY: Lungs sounds essentially clear throughout, diminished to his bilateral bases, right greater than left. Some scant subcutaneous emphysema felt to her right upper shoulder anterior and posterior. Respirations are s ymmetrical and nonlabored. Currently on 2 L nasal cannula with oxygen saturations 99%. Able to achieve 500-750 mL on her incentive spirometry. Strong cough. CARDIOVASCULAR: Regular rhythm and rate. S1 and S2 present, negative for S3, gallop or murmur. Palpable peripheral pulses bilaterally. No calf pain or tenderness noted. Knee-high MARLENY hose and sequential compression devices in place to his bilateral lower extremities. GASTROINTESTINAL: Abdomen soft, nontender, nondistended. Hypoactive bowel sounds present 4 quadrants. No guarding or rigidity. GENITOURINARY: Borges present draining clear, yellow urine. INTEGUMENTARY: Skin is warm and dry with no evidence of clubbing or cyanosis. Right chest incisions with dressings clean dry and intact. No drainage noted. NEUROLOGIC: Cranial nerves II through XII intact. No focal deficits. MUSKULOSKELETAL: Able to move all extremities, strength equal bilaterally, generalized weakness. PSYCHIATRIC: Alert and oriented to person place and time, appropriate affect, intact judgment and insight. INVASIVE LINES AND TUBES: Right pleural chest tube remains in place to low continuous wall suction -20 cm H2O. Continuous air leak is present. Draining thin serosanguineous drainage. - Allied health notes Allied health notes reviewed: nursing - Labs CBC & Chem 7: 04/05/22 08:27 04/05/22 08:27 Labs: Abnormal Lab Results - Last 24 Hours (Table) 04/04/22 04/04/22 04/05/22 Range/Units 13:32 13:32 08:27 WBC 14.9 H 12.0 H (3.8-10.6) k/uL RBC 3.77 L 3.56 L (3.80-5.40) m/uL Neutrophils # 13.5 H 9.3 H (1.3-7.7) k/uL Lymphocytes # 0.7 L (1.0-4.8) k/uL Sodium (137-145) mmol/L Creatinine 0.41 L (0.52-1.04) mg/dL Glucose 150 H (74-99) mg/dL 04/05/22 Range/Units 08:27 WBC (3.8-10.6) k/uL RBC (3.80-5.40) m/uL Neutrophils # (1.3-7.7) k/uL Lymphocytes # (1.0-4.8) k/uL Sodium 136 L (137-145) mmol/L Creatinine (0.52-1.04) mg/dL Glucose 135 H (74-99) mg/dL - Imaging and Cardiology Chest x-ray: report reviewed, image reviewed Assessment and Plan Assessment: 1. Non-small cell carcinoma right upper lobe, status post robotic assisted t horacoscopic right upper lobectomy with mediastinal lymph node dissection 2. Mild COPD with preoperative FEV1 79% of predicted value 3. Chronic nicotine dependence quit smoking 2 months ago 4. History of COVID-19 infection in November 2021, recovered 5. Remote history of cervical cancer 6. History of low back pain, on Buckholts as an outpatient basis for pain control Plan: 1. We will place her right pleural chest tube to waterseal this morning and obtain a repeat chest x-ray at 12 noon today. Keep right pleural chest tube in place for now. 2. Encourage use of her incentive spirometry 10 times every hour while awake. 3. The importance of risk modifications including continued smoking cessation was discussed with the patient. The patient has not smoked in 2 months. 4. Continue to follow the pathology results. Pathology remains pending. 5. Continue pain control per current when necessary orders. Increase tramadol to 50 mg by mouth 4 times a day. 6. Continue to follow daily chest x-rays. 7. Increase activity as tolerated, out of bed for all meals and encourage ambulation. Physical and occupational therapy consulted. 8. DVT and GI prophylaxis. 9. Metoprolol 12.5 mg by mouth twice a day initiated. 10. Medical management other comorbidities per primary care service and pulmonary service. 11. More recommendations to follow based on patient's clinical course. Time with Patient: Greater than 30
--- NOTE | 2022-04-05 10:33 | P.PN ---
Subjective Progress Note Date: 04/05/22 Patient was seen and examined. No acute events overnight. Patient reports right-sided chest pain, 7 out of 10 in severity. Chest tube draining serosanguineous fluid, 260cc output since surgery. Chest x-ray shows left lower lobe costophrenic infiltrate versus atelectasis, minimal medial pneumothorax. General: non toxic, no distress, appears at stated age Derm: warm, dry Head: atraumatic, normocephalic, symmetric Eyes: EOMI, no lid lag, anicteric sclera Mouth: no lip lesion, mucus membranes moist Cardiovascular: S1S2 reg, no murmur, positive posterior tibial pulse bilateral, Lungs: Decreased breath sounds on the right, surgical dressing clean dry and intact, right-sided chest tube to suction, no rhonchi, no rales , no accessory muscle use Ext: no gross muscle atrophy, no edema, no contractures Neuro: no focal neuro deficits Psych: Alert, oriented, appropriate affect #Leukocytosis #Acute hypoxic respiratory failure #Atelectasis #Pneumothorax #COPD not in acute exacerbation #Former smoker #Status post robotic-assisted right upper lobe resection with mediastinal lymph node dissection POD 1 Her leukocytosis is likely reactive. There are no signs of acute infection. Plans to repeat CBC tomorrow morning. Patient will be given supplemental O2 to maintain O2 saturation greater than 92%. DuoNeb as needed for shortness of breath and wheezing. Incentive spirometer. Telemetry monitoring. Management as per Cardiothoracic surgery. DVT prophylaxis: Heparin Discussed with: Patient Anticipated discharge: Depending on clinical course Anticipated discharge place: Home Objective - Vital Signs Vital signs: Vital Signs Temp 98.1 F 04/05/22 08:00 Pulse 90 04/05/22 09:12 Resp 14 04/05/22 08:00 BP 152/93 04/05/22 08:00 Pulse Ox 98 04/05/22 08:51 FiO2 Intake & Output 04/04/22 04/05/22 04/05/22 18:59 06:59 18:59 Intake Total 1750 930 0 Output Total 705 250 150 Balance 1045 680 -150 Intake: IV 1650 Intake, IV Titration 100 630 Amount ACETAMINOPHEN IV (For NPO 100 100 ) 1,000 mg In Empty Bag 1 bag @ 400 mls/hr IVPB Q6H [facility] Rx#:[id number] Lactated Ringers 1,000 ml 480 @ 40 mls/hr IV .Q24H [facility] Rx#:[id number] ceFAZolin 2 gm In Sodium 50 Chloride 0.9% 50 ml @ 100 mls/hr IVPB Q8H [facility] Rx#: [id number] Oral 300 0 Output: Chest Tube Drainage 140 Chest Tube Right Right 140 Pleural/Mediastinal Drainage 150 Right Chest 150 Urine 550 250 Estimated Blood Loss 15 Other: Voiding Method Indwelling Catheter Indwelling Catheter - Labs CBC & Chem 7: 04/05/22 08:27 04/05/22 08:27 Labs: Abnormal Lab Results - Last 24 Hours (Table) 04/04/22 04/04/22 04/05/22 Range/Units 13:32 13:32 08:27 WBC 14.9 H 12.0 H (3.8-10.6) k/uL RBC 3.77 L 3.56 L (3.80-5.40) m/uL Neutrophils # 13.5 H 9.3 H (1.3-7.7) k/uL Lymphocytes # 0.7 L (1.0-4.8) k/uL Sodium (137-145) mmol/L Creatinine 0.41 L (0.52-1.04) mg/dL Glucose 150 H (74-99) mg/dL 04/05/22 Range/Units 08:27 WBC (3.8-10.6) k/uL RBC (3.80-5.40) m/uL Neutrophils # (1.3-7.7) k/uL Lymphocytes # (1.0-4.8) k/uL Sodium 136 L (137-145) mmol/L Creatinine (0.52-1.04) mg/dL Glucose 135 H (74-99) mg/dL
[2022-04-05] MEDS: METOPROLOL TARTRATE 12.5 MG TAB PO SCH ×2 (11:27→20:59)
[2022-04-05] MEDS: PANTOPRAZOLE 40 MG TABLET PO SCH (11:28)
--- NOTE | 2022-04-05 12:51 | P.PN ---
Subjective Progress Note Date: 04/05/22 On 04/05/2022, the patient is postoperative day #1. She is doing well. She did have some air leak on her chest tube earlier today. She was placed on waterseal. Subsequent chest x-ray showed enlargement of the right-sided pneumothorax. I put her back on wall suction and she is still having positive air leak. Output from the chest tube has been in the order of 300 mL since she came from the operating room. She is using the incentive spirometer. She is sitting up on a chair. Her pain is under better control. Awake and alert and she is on room air oxygen. She is tolerating diet. No other significant events otherwise for now. I reviewed the x-rays from the morning and subsequent chest x-ray and I discussed the case with Joe [place]. Objective - Vital Signs Vital signs: Vital Signs Temp 98.1 F 04/05/22 08:00 Pulse 90 04/05/22 12:09 Resp 14 04/05/22 08:00 BP 152/93 04/05/22 08:00 Pulse Ox 98 04/05/22 08:51 FiO2 Intake & Output 04/04/22 04/05/22 04/05/22 18:59 06:59 18:59 Intake Total 1750 930 0 Output Total 705 250 750 Balance 1045 680 -750 Intake: IV 1650 Intake, IV Titration 100 630 Amount ACETAMINOPHEN IV (For NPO 100 100 ) 1,000 mg In Empty Bag 1 bag @ 400 mls/hr IVPB Q6H [facility] Rx#:[id number] Lactated Ringers 1,000 ml 480 @ 40 mls/hr IV .Q24H [facility] Rx#:[id number] ceFAZolin 2 gm In Sodium 50 Chloride 0.9% 50 ml @ 100 mls/hr IVPB Q8H [facility] Rx#: [id number] Oral 300 0 Output: Chest Tube Drainage 140 Chest Tube Right Right 140 Pleural/Mediastinal Drainage 150 Right Chest 150 Urine 550 250 600 Estimated Blood Loss 15 Other: Voiding Method Indwelling Catheter Indwelling Catheter Indwelling Catheter - Exam CONSTITUTIONAL: Sitting up to the bedside chair on the cardiac stepdown unit, complaining of pain with taking a deep breath to her chest tube insertion site and to her right shoulder, rating her pain 5 out of 10 on the pain scale, cooperative, no apparent acute distress. HEENT: Neck is supple, no JVD, no lymphadenopathy. RESPIRATORY: Lungs sounds essentially clear throughout, diminished to his bilateral bases, right greater than left. Some scant subcutaneous emphysema felt to her right upper shoulder anterior and posterior. Respirations are symmetrical and nonlabored. Currently on 2 L nasal cannula with oxygen saturations 99%. Able to achieve 500-750 mL on her incentive spirometry. Strong cough. CARDIOVASCULAR: Regular rhythm and rate. S1 and S2 present, negative for S3, gallop or murmur. Palpable peripheral pulses bilaterally. No calf pain or tenderness noted. Knee-high MARLENY hose and sequential compression devices in p lace to his bilateral lower extremities. GASTROINTESTINAL: Abdomen soft, nontender, nondistended. Hypoactive bowel sounds present 4 quadrants. No guarding or rigidity. GENITOURINARY: Borges present draining clear, yellow urine. INTEGUMENTARY: Skin is warm and dry with no evidence of clubbing or cyanosis. Right chest incisions with dressings clean dry and intact. No drainage noted. NEUROLOGIC: Cranial nerves II through XII intact. No focal deficits. MUSKULOSKELETAL: Able to move all extremities, strength equal bilaterally, generalized weakness. PSYCHIATRIC: Alert and oriented to person place and time, appropriate affect, intact judgment and insight. INVASIVE LINES AND TUBES: Right pleural chest tube remains in place to low continuous wall suction -20 cm H2O. Continuous air leak is present. Draining thin serosanguineous drainage. - Labs CBC & Chem 7: 04/05/22 08:27 04/05/22 08:27 Labs: Abnormal Lab Results - Last 24 Hours (Table) 04/04/22 04/04/22 04/05/22 Range/Units 13:32 13:32 08:27 WBC 14.9 H 12.0 H (3.8-10.6) k/uL RBC 3.77 L 3.56 L (3.80-5.40) m/uL Neutrophils # 13.5 H 9.3 H (1.3-7.7) k/uL Lymphocytes # 0.7 L (1.0-4.8) k/uL Sodium (137-145) mmol/L Creatinine 0.41 L (0.52-1.04) mg/dL Glucose 150 H (74-99) mg/dL 04/05/22 Range/Units 08:27 WBC (3.8-10.6) k/uL RBC (3.80-5.40) m/uL Neutrophils # (1.3-7.7) k/uL Lymphocytes # (1.0-4.8) k/uL Sodium 136 L (137-145) mmol/L Creatinine (0.52-1.04) mg/dL Glucose 135 H (74-99) mg/dL Assessment and Plan Plan: 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 Patient is postop day #1, the patient has a right-sided chest tube with a positive air leak, platysma and only 100 mL of bloody emesis of arrival from the operating room, persistent pneumothorax and air leak and the chest tube had to be connected back to wall suction. Acute hypoxic respiratory failure, expected outcome of lobectomy and the patient is on room air oxygen Right-sided air leak through the right-sided chest tube COPD with a preoperative FEV1 of 79% of predicted Chronic smoker. Remote history of cervical cancer Previous history of colon 19 infection, recovered Plan Moderate air leak and monitor their leak Keep wall suction incentive spirometer spirometer Titrate Oxygen flow to maintain a saturation above 90%, currently on room air DuoNeb neb on the clock 4 times a day Keep the right-sided chest tube in place Daily chest x-rays Provide patient adequate pain control with [place]
--- NOTE | 2022-04-05 12:58 | XR ---
"EXAMINATION TYPE: XR chest 1V portable DATE OF EXAM: 04/05/2022 COMPARISON: 04/05/2022 INDICATION: Postop right upper lobectomy TECHNIQUE: Single frontal view of the chest is obtained. FINDINGS: The heart size is normal. The pulmonary vasculature is normal. There is interval development of a moderately large right pneumothorax. Chest tube remains in positio n. IMPRESSION: 1. Moderately large right upper lung field pneumothorax significantly increased over the interval. A [place] level critical message alert has been initiated for SHI [id number] via the [employer] | Critical Results System on 04/05/2022 12:55 PM. This message alert has been sent to GENE Spicer via the preferences provided by the clinician for the receipt of Radiology Critical Findings. Message ID [id number]."
[2022-04-05] MEDS ORDERED: HYDROmorphone 0.5 MG/0.5 ML SYRINGE IVP STA (14:45)
[2022-04-06] MEDS: HYDROcodone/APAP 10-325MG 1 EACH TAB PO PRN ×3 (03:48→19:52)
[2022-04-06] MEDS: PANTOPRAZOLE 40 MG TABLET PO SCH (06:07)
--- NOTE | 2022-04-06 07:43 | XR ---
EXAMINATION TYPE: XR chest 1V portable DATE OF EXAM: 04/06/2022 COMPARISON: Chest x-ray dated 04/05/2022 HISTORY: Status post right upper lobectomy TECHNIQUE: Single frontal view of the chest is obtained. FINDINGS: Right-sided chest tube remains in place. There is improvement in the right-sided pneumotho rax near complete resolution. Prominence the right hilar region is likely postoperative. Subcutaneous emphysema seen over the upper chest and neck on the right. Patchy basilar density in the left may re flect some atelectasis. Cardiac mediastinal silhouette is within normal limits. Patient is rotated. T here are overlying leads. IMPRESSION: Postop findings. Improvement in right pneumothorax.
[2022-04-06] MEDS: IPRATROPIUM-ALBUTEROL 3 ML NEB IH SCH ×4 (08:14→20:56)
[2022-04-06] MEDS: FORMOTEROL FUMARATE 20 MCG/2 ML NEBU INHALATION SCH ×2 (08:14→20:56)
[2022-04-06] MEDS: HEPARIN SODIUM,PORCINE/PF 5,000 UNIT/0.5 ML SYRINGE SQ SCH ×3 (09:17→23:08)
--- NOTE | 2022-04-06 09:17 | P.PN ---
Subjective Progress Note Date: 04/06/22 Principal diagnosis: Non-small cell carcinoma right upper lobe. Past medical history significant for chronic nicotine dependence quit smoking approximately 2 months ago, COVID-19 infection in November 2021, history of marijuana use, COPD with preoperative FEV1 79% of predicted value, remote history of cervical cancer, and history of low back pain with herniated disks in which she takes [place] for pain at home. POD #2 robotic assisted thoracoscopic right upper lobectomy with mediastinal lymph node dissection. The patient was seen and examined in follow-up today 04/06/2022 at her bedside on the cardiac stepdown unit. Currently she is sitting up to the bedside chair, is awake, alert, oriented 3 and is in no acute distress. She denies any complaints of shortness of breath at this time although is complaining of some minimal pain to her right shoulder with taking a deep breath. Currently she rates her pain 3 out of 10 on the pain scale and reports that her pain is much improved from yesterday. Oxygen saturations are 94% on room air and she is achieving 500-750 mL on her incentive spirometry with encouragement. Right pleural chest tube remains in place to low continuous wall suction -20 cm H2O. Intermittent air leak is present. Draining thin serosanguineous drainage with 50 mL output in the last 24 hours. Her chest tube was removed from all suction yesterday and placed on water seal in the morning and a repeat chest x-ray at around noon showed a right pneumothorax and the chest tube was subsequently placed back to low continuous wall suction -20 cm H2O. She has been up ambulating in her room with standby assistance from nursing and therapy staff and has been tolerating well. Her pathology results remain pending. Remote telemetry is showing sinus tachycardia with heart rate of 107 BPM. She has been afebrile the last 24 hours. Laboratory results are pending. Objective - Vital Signs Vital signs: Vital Signs Temp 98.1 F 04/06/22 08:00 Pulse 88 04/06/22 08:34 Resp 20 04/06/22 08:00 BP 129/87 04/06/22 08:00 Pulse Ox 94 L 04/06/22 08:00 FiO2 Intake & Output 04/05/22 04/06/22 04/06/22 18:59 06:59 18:59 Intake Total 118 475 118 Output Total 1100 45 Balance -982 430 118 Intake: Oral 118 475 118 Output: Drainage 150 45 Right Chest 150 45 Urine 950 Other: Voiding Method Toilet # Voids 2 # Bowel Movements 1 - Exam CONSTITUTIONAL: Sitting up to the bedside chair on the cardiac stepdown unit, complaining of pain with taking a deep breath to her chest tube insertion site and to her right shoulder, rating her pain 3 out of 10 on the pain scale, cooperative, no apparent acute distress. HEENT: Neck is supple, no JVD, no lymphadenopathy. RESPIRATORY: Lungs sounds essentially clear throughout, diminished to his bilateral bases, right greater than left. Some scant subcutaneous emphysema felt to her right upper shoulder anterior and posterior. Respirations are symmetrical and nonlabored. Currently on room air with oxygen saturations 94%. Able to achieve 500-750 mL on her incentive spirometry with encouragement. Strong cough. CARDIOVASCULAR: Regular rhythm and rate. S1 and S2 present, negative for S3, gallop or murmur. Palpable peripheral pulses bilaterally. No calf pain or tenderness noted. Knee-high MARLENY hose and sequential compression devices in place to his bilateral lower extremities. GASTROINTESTINAL: Abdomen soft, nontender, nondistended. Active bowel sounds present 4 quadrants. No guarding or rigidity. GENITOURINARY: Continues to void. INTEGUMENTARY: Skin is warm and dry with no evidence of clubbing or cyanosis. Right chest incisions with dressings clean dry and intact. No drainage noted. NEUROLOGIC: Cranial nerves II through XII intact. No focal deficits. MUSKULOSKELETAL: Able to move all extremities, strength equal bilaterally. PSYCHIATRIC: Alert and oriented to person place and time, appropriate affect, intact judgment and insight. INVASIVE LINES AND TUBES: Right pleural chest tube remains in place to low continuous wall suction -20 cm H2O. intermittent air leak is present. Draining thin serosanguineous drainage. - Allied health notes Allied health notes reviewed: nursing - Labs CBC & Chem 7: 04/05/22 08:27 04/05/22 08:27 Labs: Abnormal Lab Results - Last 24 Hours (Table) 04/05/22 04/05/22 Range/Units 08:27 08:27 WBC 12.0 H (3.8-10.6) k/uL RBC 3.56 L (3.80-5.40) m/uL Neutrophils # 9.3 H (1.3-7.7) k/uL Sodium 136 L (137-145) mmol/L Glucose 135 H (74-99) mg/dL - Imaging and Cardiology Chest x-ray: report reviewed, image reviewed Assessment and Plan Assessment: 1. Non-small cell carcinoma right upper lobe, status post robotic assisted thoracoscopic right upper lobectomy with mediastinal lymph node dissection 2. Mild COPD with preoperative FEV1 79% of predicted value 3. Chronic nicotine dependence quit smoking 2 months ago 4. History of COVID-19 infection in November 2021, recovered 5. Remote history of cervical cancer 6. History of low back pain, on [place] as an outpatient basis for pain control Plan: 1. Continue right pleural chest tube to low continuous wall suction -20 cm H2O. Continue to monitor for airleak resolution. Continue to record strict and accurate I's and O's. 2. Encourage use of her incentive spirometry 10 times every hour while awake. 3. The importance of risk modifications including continued smoking cessation was discussed with the patient. The patient has not smoked in 2 months and reports she has done with smoking. 4. Continue to follow the pathology results. Pathology remains pending. 5. Continue pain control per current when necessary orders. 6. Continue to follow daily chest x-rays. 7. Increase activity as tolerated, out of bed for all meals and encourage ambulation. Physical and occupational therapy consulted. 8. DVT and GI prophylaxis. 9. Increase Metoprolol tartrate to 25 mg by mouth twice a day. 10. Medical management other comorbidities per primary care service and pulmonary service. 11. More recommendations to follow based on patient's clinical course. Time with Patient: Greater than 30
[2022-04-06] MEDS: traMADol 50 MG TAB PO SCH ×4 (09:18→23:07)
[2022-04-06] MEDS: METOPROLOL TARTRATE 25 MG TAB PO SCH ×2 (09:19→19:53)
[2022-04-06] MEDS ORDERED: HYDROmorphone 0.5 MG/0.5 ML SYRINGE IVP STA (10:45)
[2022-04-06 11:10] LABS: HCT 33.3 % (34.0-46.0); HGB 11.4 gm/dL (11.4-16.0); MCH 33.2 pg (25.0-35.0); MCHC 34.4 g/dL (31.0-37.0); MCV 96.6 fL (80.0-100.0); Mean Platelet Volume 8.1; Platelet Count 239 k/uL (150-450); RBC 3.45 m/uL (3.80-5.40); WBC 13.5 k/uL (3.8-10.6)
[2022-04-06 11:21] LABS: African American GFR (CKD) >90 (>60 ml/min/1.73 sqM); Anion Gap 12 mmol/L; Blood Urea Nitrogen 8 mg/dL (7-17); Calcium 8.6 mg/dL (8.4-10.2); Carbon Dioxide 26 mmol/L (22-30); Chloride 96 mmol/L (98-107); Glucose 127 mg/dL (74-99); Non-African American GFR(CKD) >90 (>60 ml/min/1.73 sqM); Potassium 3.7 mmol/L (3.5-5.1); Sodium 134 mmol/L (137-145)
--- NOTE | 2022-04-06 12:37 | P.PN ---
Subjective Progress Note Date: 04/06/22 On 04/05/2022, the patient is postoperative day #1. She is doing well. She did have some air leak on her chest tube earlier today. She was placed on waterseal. Subsequent chest x-ray showed enlargement of the right-sided pneumothorax. I put her back on wall suction and she is still having positive air leak. Output from the chest tube has been in the order of 300 mL since she came from the operating room. She is using the incentive spirometer. She is sitting up on a chair. Her pain is under better control. Awake and alert and she is on room air oxygen. She is tolerating diet. No other significant events otherwise for now. I reviewed the x-rays from the morning and subsequent chest x-ray and I discussed the case with Joe [place]. On 04/06/2022, the patient's prothrombin #2. The chest x-ray from today showed no pneumothorax. There is some limited soakings emphysema in the right apex. Meanwhile, the patient continues to have some intermittent air leak. Output from the chest was minimal at this point in time. The patient is under good control. Using incentive spirometer. Using nebulize treatments [id number] with DuoNeb. The white cell count of 15.4 with a hemoglobin of 11.4. BUN is 8 with a creatinine of 0.7 sodium level is 134. Objective - Vital Signs Vital signs: Vital Signs Temp 98.4 F 04/06/22 12:00 Pulse 99 04/06/22 12:00 Resp 18 04/06/22 12:00 BP 125/83 04/06/22 12:00 Pulse Ox 93 L 04/06/22 12:00 FiO2 Intake & Output 04/05/22 04/06/22 04/06/22 18:59 06:59 18:59 Intake Total 118 475 118 Output Total 1100 45 Balance -982 430 118 Intake: Oral 118 475 118 Output: Drainage 150 45 Right Chest 150 45 Urine 950 Other: Voiding Method Toilet # Voids 2 # Bowel Movements 1 - Exam CONSTITUTIONAL: Sitting up to the bedside chair on the cardiac stepdown unit, complaining of pain with taking a deep breath to her chest tube insertion site and to her right shoulder, rating her pain 5 out of 10 on the pain scale, cooperative, no apparent acute distress. HEENT: Neck is supple, no JVD, no lymphadenopathy. RESPIRATORY: Lungs sounds essentially clear throughout, diminished to his bilateral bases, right greater than left. Some scant subcutaneous emphysema felt to her right upper shoulder anterior and posterior. Respirations are symmetrical and nonlabored. Currently on 2 L nasal cannula with oxygen saturations 99%. Able to achieve 500-750 mL on her incentive spirometry. Strong cough. CARDIOVASCULAR: Regular rhythm and rate. S1 and S2 present, negative for S3, gallop or murmur. Palpable peripheral pulses bilaterally. No calf pain or tenderness noted. Knee-high MARLENY hose and sequential compression devices in place to his bilateral lower extremities. GASTROINTESTINAL: Abdomen soft, nontender, nondistended. Hypoactive bowel s ounds present 4 quadrants. No guarding or rigidity. GENITOURINARY: Borges present draining clear, yellow urine. INTEGUMENTARY: Skin is warm and dry with no evidence of clubbing or cyanosis. Right chest incisions with dressings clean dry and intact. No drainage noted. NEUROLOGIC: Cranial nerves II through XII intact. No focal deficits. MUSKULOSKELETAL: Able to move all extremities, strength equal bilaterally, generalized weakness. PSYCHIATRIC: Alert and oriented to person place and time, appropriate affect, intact judgment and insight. INVASIVE LINES AND TUBES: Right pleural chest tube remains in place to low continuous wall suction -20 cm H2O. Continuous air leak is present. Draining thin serosanguineous drainage. - Labs CBC & Chem 7: 04/06/22 09:58 10 09:58 Labs: Abnormal Lab Results - Last 24 Hours (Table) 04/06/22 04/06/22 Range/Units 09:58 09:58 WBC 13.5 H (3.8-10.6) k/uL RBC 3.45 L (3.80-5.40) m/uL Hct 33.3 L (34.0-46.0) % Sodium 134 L (137-145) mmol/L Chloride 96 L (98-107) mmol/L Creatinine 0.47 L (0.52-1.04) mg/dL Glucose 127 H (74-99) mg/dL Assessment and Plan Plan: 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 Patient is postop day #2, the lungs well expanded. No evidence of any pneumothorax. There is positive air leak. Acute hypoxic respiratory failure, expected outcome of lobectomy and the patient is on room air oxygen Right-sided air leak through the right-sided chest tube COPD with a preoperative FEV1 of 79% of predicted Chronic smoker. Remote history of cervical cancer Previous history of colon 19 infection, recovered Plan Occasional intermittent air leak and monitor their leak Keep wall suction Repeat chest x-ray tomorrow and the patient will be switched to an department traffic freight router waterseal incentive spirometer spirometer Titrate Oxygen flow to maintain a saturation above 90%, currently on room air DuoNeb neb on the clock 4 times a day Keep the right-sided chest tube in place Daily chest x-rays Provide patient adequate pain control with [place]
--- NOTE | 2022-04-06 12:48 | P.PN ---
Subjective Progress Note Date: 04/06/22 Patient was seen and examined. No acute events overnight. Patient reports right-sided chest pain, 10 out of 10 in severity. General: non toxic, no distress, appears at stated age Derm: warm, dry Head: atraumatic, normocephalic, symmetric Eyes: EOMI, no lid lag, anicteric sclera Mouth: no lip lesion, mucus membranes moist Cardiovascular: S1S2 reg, no murmur, positive posterior tibial pulse bilateral, Lungs: Decreased breath sounds on the right, surgical dressing clean dry and intact, right-sided chest tube to suction, no rhonchi, no rales , no accessory muscle use Ext: no gross muscle atrophy, no edema, no contractures Neuro: no focal neuro deficits Psych: Alert, oriented, appropriate affect #Leukocytosis #Acute hypoxic respiratory failure #Atelectasis #Pneumothorax #COPD not in acute exacerbation #Former smoker #Status post robotic-assisted right upper lobe resection with mediastinal lymph node dissection POD 2 Her leukocytosis is likely reactive. There are no signs of acute infection. Plans to repeat CBC tomorrow morning. Patient will be given supplemental O2 to maintain O2 saturation greater than 92%. DuoNeb as needed for shortness of breath and wheezing. Incentive chris meter. Telemetry monitoring. Management as per Cardiothoracic surgery. DVT prophylaxis: Heparin Discussed with: Patient Anticipated discharge: Depending on clinical course Anticipated discharge place: Home Objective - Vital Signs Vital signs: Vital Signs Temp 98.4 F 04/06/22 12:00 Pulse 99 04/06/22 12:00 Resp 18 04/06/22 12:00 BP 125/83 04/06/22 12:00 Pulse Ox 93 L 04/06/22 12:00 FiO2 Intake & Output 04/05/22 04/06/22 04/06/22 18:59 06:59 18:59 Intake Total 118 475 118 Output Total 1100 45 Balance -982 430 118 Intake: Oral 118 475 118 Output: Drainage 150 45 Right Chest 150 45 Urine 950 Other: Voiding Method Toilet # Voids 2 # Bowel Movements 1 - Labs CBC & Chem 7: 04/06/22 09:58 04/06/22 09:58 Labs: Abnormal Lab Results - Last 24 Hours (Table) 04/06/22 04/06/22 Range/Units 09:58 09:58 WBC 13.5 H (3.8-10.6) k/uL RBC 3.45 L (3.80-5.40) m/uL Hct 33.3 L (34.0-46.0) % Sodium 134 L (137-145) mmol/L Chloride 96 L (98-107) mmol/L Creatinine 0.47 L (0.52-1.04) mg/dL Glucose 127 H (74-99) mg/dL
[2022-04-07] MEDS: HYDROcodone/APAP 10-325MG 1 EACH TAB PO PRN ×4 (03:06→23:30)
[2022-04-07] MEDS: PANTOPRAZOLE 40 MG TABLET PO SCH (06:35)
--- NOTE | 2022-04-07 07:33 | XR ---
EXAMINATION TYPE: XR chest 1V portable DATE OF EXAM: 04/07/2022 COMPARISON: Chest x-ray 04/06/2022 HISTORY: Chest tube, post lobectomy TECHNIQUE: Single frontal view of the chest is obtained. FINDINGS: Right-sided chest tube remains in place. Subcutaneous emphysema is somewhat less conspicuo us over the right neck. No sizable pneumothorax. Finding loss is present in the right hemithorax. Pos top changes are again noted. Cardiomediastinal silhouette is stable. There are overlying leads. Right hemidiaphragm is elevated. IMPRESSION: Postop changes.
[2022-04-07] MEDS: FORMOTEROL FUMARATE 20 MCG/2 ML NEBU INHALATION SCH ×2 (07:59→19:10)
[2022-04-07] MEDS: IPRATROPIUM-ALBUTEROL 3 ML NEB IH SCH ×4 (07:59→19:10)
--- NOTE | 2022-04-07 08:40 | P.PN ---
Subjective Progress Note Date: 04/07/22 Principal diagnosis: Non-small cell carcinoma right upper lobe. Past medical history significant for chronic nicotine dependence quit smoking approximately 2 months ago, COVID-19 infection in November 2021, history of marijuana use, COPD with preoperative FEV1 79% of predicted value, remote history of cervical cancer, and history of low back pain with herniated disks in which she takes [place] for pain at home. POD #3 robotic assisted thoracoscopic right upper lobectomy with mediastinal lymph node dissection. The patient was seen and examined in follow-up today 04/07/2022 at her bedside on the cardiac stepdown unit. The patient reports this morning she feels much improved from yesterday, states that her pain is much better controlled and currently rates her pain 2 out of 10 on the pain scale. Denies any complaints of shortness of breath, oxygen saturations are 94% on room air and she is achieving 750 mL on her incentive spirometry. Right pleural chest tube remains in place to low continuous wall suction -20 cm H2O. No air leak is present and she has had no drainage out of her right pleural chest tube in the last 24 hours. Chest x-ray on low continuous wall suction this morning shows no sizable pneumothorax and some scant subcutaneous emphysema to her right neck. Remote telemetry showing normal sinus rhythm heart rate 90 BPM. She remains hemodynamically stable and is currently on no inotropic pressure support. The patient has been up ambulating in her room with standby assistance from nursing staff. She is tolerating diet and passing flatus. Right pleural chest tube has been placed to waterseal. Surgical pathology results remain pending. Objective - Vital Signs Vital signs: Vital Signs Temp 98.3 F 04/07/22 03:10 Pulse 96 04/07/22 08:18 Resp 16 04/07/22 03:10 BP 119/77 04/07/22 03:10 Pulse Ox 94 L 04/07/22 03:10 FiO2 Intake & Output 04/06/22 04/07/22 04/07/22 18:59 06:59 18:59 Intake Total 118 500 Output Total 20 0 Balance 118 -20 500 Intake: Oral 118 500 Output: Chest Tube Drainage 20 Chest Tube Right Right 20 Pleural/Mediastinal Drainage 0 Right Chest 0 Other: # Bowel Movements 3 - Exam CONSTITUTIONAL: Sitting up to the bedside chair on the cardiac stepdown unit, complaining of pain with taking a deep breath to her chest tube insertion site and to her right shoulder, rating her pain 2 out of 10 on the pain scale, cooperative, no apparent acute distress. HEENT: Neck is supple, no JVD, no lymphadenopathy. RESPIRATORY: Lungs sounds essentially clear throughout, diminished to his bilateral bases, right greater than left. Some scant subcutaneous emphysema felt to her right upper shoulder anterior and posterior. Respirations are symmetrical and nonlabored. Currently on room air with oxygen saturations 94%. Able to achieve 750 mL on her incentive spirometry with encouragement. Strong cough. CARDIOVASCULAR: Regular rhythm and rate. S1 and S2 present, negative for S3, gallop or murmur. Palpable peripheral pulses bilaterally. No calf pain or tenderness noted. Knee-high MARLENY hose and sequential compression devices in place to his bilateral lower extremities. GASTROINTESTINAL: Abdomen soft, nontender, nondistended. Active bowel sounds present 4 quadrants. No guarding or rigidity. GENITOURINARY: Continues to void. INTEGUMENTARY: Skin is warm and dry with no evidence of clubbing or cyanosis. Right chest incisions with dressings clean dry and intact. No drainage noted. NEUROLOGIC: Cranial nerves II through XII intact. No focal deficits. MUSKULOSKELETAL: Able to move all extremities, strength equal bilaterally. PSYCHIATRIC: Alert and oriented to person place and time, appropriate affect, intact judgment and insight. INVASIVE LINES AND TUBES: Right pleural chest tube remains in place to low continuous wall suction -20 cm H2O. No air leak is present. No drainage in the last 24 hours. - Allied health notes Allied health notes reviewed: nursing - Labs CBC & Chem 7: 04/06/22 09:58 04/06/22 09:58 Labs: Abnormal Lab Results - Last 24 Hours (Table) 04/06/22 04/06/22 Range/Units 09:58 09:58 WBC 13.5 H (3.8-10.6) k/uL RBC 3.45 L (3.80-5.40) m/uL Hct 33.3 L (34.0-46.0) % Sodium 134 L (137-145) mmol/L Chloride 96 L (98-107) mmol/L Creatinine 0.47 L (0.52-1.04) mg/dL Glucose 127 H (74-99) mg/dL - Imaging and Cardiology Chest x-ray: report reviewed, image reviewed Assessment and Plan Assessment: 1. Non-small cell carcinoma right upper lobe, status post robotic assisted thoracoscopic right upper lobectomy with mediastinal lymph node dissection 2. Mild COPD with preoperative FEV1 79% of predicted value 3. Chronic nicotine dependence quit smoking 2 months ago 4. History of COVID-19 infection in November 2021, recovered 5. Remote history of cervical cancer 6. History of low back pain, on [place] as an outpatient basis for pain control Plan: 1. Right pleural chest tube has been placed to waterseal. Repeat chest x-ray has been ordered and is pending. Continue to monitor chest tube for air leak. 2. Encourage use of her incentive spirometry 10 times every hour while awake. 3. The importance of risk modifications including continued smoking cessation was discussed with the patient. The patient has not smoked in 2 months and reports she has done with smoking. 4. Continue to follow the pathology results. Pathology remains pending. 5. Continue pain control per current when necessary orders. 6. Continue to follow daily chest x-rays. 7. Increase activity as tolerated, out of bed for all meals and encourage ambulation. Physical and occupational therapy are following. 8. DVT and GI prophylaxis. 9. Continue Metoprolol tartrate to 25 mg by mouth twice a day. 10. Medical management other comorbidities per primary care service and pulmonary service. 11. More recommendations to follow based on patient's clinical course. Time with Patient: Greater than 30
[2022-04-07] MEDS: traMADol 50 MG TAB PO SCH ×4 (09:00→20:35)
[2022-04-07] MEDS: METOPROLOL TARTRATE 25 MG TAB PO SCH ×2 (09:00→20:36)
[2022-04-07] MEDS: HEPARIN SODIUM,PORCINE/PF 5,000 UNIT/0.5 ML SYRINGE SQ SCH ×3 (09:00→23:30)
--- NOTE | 2022-04-07 09:46 | XR ---
EXAMINATION TYPE: XR chest 1V portable DATE OF EXAM: 04/07/2022 COMPARISON: Chest x-ray same date at earlier time HISTORY: Chest tube to water seal TECHNIQUE: Single frontal view of the chest is obtained. FINDINGS: There may be minimal apical pneumothorax present. No other significant interval change. IMPRESSION: As above
--- NOTE | 2022-04-07 11:37 | P.PN ---
Subjective Progress Note Date: 04/07/22 Patient was seen and examined. No acute events overnight. Patient reports improvement in her right-sided chest pain. CXR this morning shows minimal apical pneumothorax. 750 ml on incentive spirometer. General: non toxic, no distress, appears at stated age Derm: warm, dry Head: atraumatic, normocephalic, symmetric Eyes: EOMI, no lid lag, anicteric sclera Mouth: no lip lesion, mucus membranes moist Cardiovascular: S1S2 reg, no murmur, positive posterior tibial pulse bilateral, Lungs: Decreased breath sounds on the right, surgical dressing clean dry and intact, right-sided chest tube to suction, no rhonchi, no rales , no accessory muscle use Ext: no gross muscle atrophy, no edema, no contractures Neuro: no focal neuro deficits Psych: Alert, oriented, appropriate affect #Leukocytosis #Acute hypoxic respiratory failure #Atelectasis #Pneumothorax #COPD not in acute exacerbation #Former smoker #Status post robotic-assisted right upper lobe resection with mediastinal lymph node dissection POD 3 Her leukocytosis is likely reactive. There are no signs of acute infection. Plans to repeat CBC tomorrow morning. Patient will be given supplemental O2 to maintain O2 saturation greater than 92 %. DuoNeb as needed for shortness of breath and wheezing. Incentive spirometer. Telemetry monitoring. Management as per Cardiothoracic surgery. DVT prophylaxis: Heparin Discussed with: Patient Anticipated discharge: Depending on clinical course Anticipated discharge place: Home Objective - Vital Signs Vital signs: Vital Signs Temp 98.5 F 04/07/22 08:00 Pulse 92 04/07/22 11:27 Resp 18 04/07/22 08:00 BP 111/72 04/07/22 08:00 Pulse Ox 97 04/07/22 08:00 FiO2 Intake & Output 04/06/22 04/07/22 04/07/22 18:59 06:59 18:59 Intake Total 118 500 Output Total 20 0 Balance 118 -20 500 Intake: Oral 118 500 Output: Chest Tube Drainage 20 Chest Tube Right Right 20 Pleural/Mediastinal Drainage 0 Right Chest 0 Other: # Voids 1 # Bowel Movements 3 - Labs CBC & Chem 7: 04/06/22 09:58 04/06/22 09:58
--- NOTE | 2022-04-07 11:45 | P.PN ---
Subjective Progress Note Date: 04/07/22 On 04/05/2022, the patient is postoperative day #1. She is doing well. She did have some air leak on her chest tube earlier today. She was placed on waterseal. Subsequent chest x-ray showed enlargement of the right-sided pneumothorax. I put her back on wall suction and she is still having positive air leak. Output from the chest tube has been in the order of 300 mL since she came from the operating room. She is using the incentive spirometer. She is sitting up on a chair. Her pain is under better control. Awake and alert and she is on room air oxygen. She is tolerating diet. No other significant events otherwise for now. I reviewed the x-rays from the morning and subsequent chest x-ray and I discussed the case with Joe [place]. On 04/06/2022, the patient's prothrombin #2. The chest x-ray from today showed no pneumothorax. There is some limited soakings emphysema in the right apex. Meanwhile, the patient continues to have some intermittent air leak. Output from the chest was minimal at this point in time. The patient is under good control. Using incentive spirometer. Using nebulize treatments [id number] with DuoNeb. The white cell count of 15.4 with a hemoglobin of 11.4. BUN is 8 with a creatinine of 0.7 sodium level is 134. 04/07/2022, there is no evidence of pneumothorax on today's chest x-ray. She is on waterseal. Airleak is none. Sitting up on a chair and she is on room air oxygen. Surgical wound site is clean and intact. No other significant events overnight. Patient is scheduled for now. She is ambulating. Objective - Vital Signs Vital signs: Vital Signs Temp 98.5 F 04/07/22 08:00 Pulse 92 04/07/22 11:27 Resp 18 04/07/22 08:00 BP 111/72 04/07/22 08:00 Pulse Ox 97 04/07/22 08:00 FiO2 Intake & Output 04/06/22 04/07/22 04/07/22 18:59 06:59 18:59 Intake Total 118 500 Output Total 20 0 Balance 118 -20 500 Intake: Oral 118 500 Output: Chest Tube Drainage 20 Chest Tube Right Right 20 Pleural/Mediastinal Drainage 0 Right Chest 0 Other: # Voids 1 # Bowel Movements 3 - Exam CONSTITUTIONAL: Sitting up to the bedside chair on the cardiac stepdown unit, complaining of pain with taking a deep breath to her chest tube insertion site and to her right shoulder, rating her pain 5 out of 10 on the pain scale, coop erative, no apparent acute distress. HEENT: Neck is supple, no JVD, no lymphadenopathy. RESPIRATORY: Lungs sounds essentially clear throughout, diminished to his bilateral bases, right greater than left. Some scant subcutaneous emphysema felt to her right upper shoulder anterior and posterior. Respirations are symmetrical and nonlabored. Currently on 2 L nasal cannula with oxygen saturations 99%. Able to achieve 500-750 mL on her incentive spirometry. Strong cough. CARDIOVASCULAR: Regular rhythm and rate. S1 and S2 present, negative for S3, gallop or murmur. Palpable peripheral pulses bilaterally. No calf pain or tenderness noted. Knee-high MARLENY hose and sequential compression devices in place to his bilateral lower extremities. GASTROINTESTINAL: Abdomen soft, nontender, nondistended. Hypoactive bowel sounds present 4 quadrants. No guarding or rigidity. GENITOURINARY: Borges present draining clear, yellow urine. INTEGUMENTARY: Skin is warm and dry with no evidence of clubbing or cyanosis. Right chest incisions with dressings clean dry and intact. No drainage noted. NEUROLOGIC: Cranial nerves II through XII intact. No focal deficits. MUSKULOSKELETAL: Able to move all extremities, strength equal bilaterally, generalized weakness. PSYCHIATRIC: Alert and oriented to person place and time, appropriate affect, intact judgment and insight. INVASIVE LINES AND TUBES: Right pleural chest tube remains in place to low continuous wall suction -20 cm H2O. Continuous air leak is present. Draining thin serosanguineous drainage. - Labs CBC & Chem 7: 04/06/22 09:58 04/06/22 09:58 Assessment and Plan Plan: 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 Patient is postop day #3, the lungs well expanded. No evidence of any pneumothorax. There is no air leak. Chest tube is in place. Chest tube is noted to waterseal. Acute hypoxic respiratory failure, expected outcome of lobectomy and the patient is on room air oxygen Right-sided air leak through the right-sided chest tube COPD with a preoperative FEV1 of 79% of predicted Chronic smoker. Remote history of cervical cancer Previous history of colon 19 infection, recovered Plan Chest tube to waterseal Repeat chest x-ray tomorrow incentive spirometer spirometer Titrate Oxygen flow to maintain a saturation above 90%, currently on room air DuoNeb neb on the clock 4 times a day Keep the right-sided chest tube in place Daily chest x-rays Provide patient adequate pain control with [facility]
[2022-04-08] MEDS: PANTOPRAZOLE 40 MG TABLET PO SCH (05:53)
[2022-04-08] MEDS: HYDROcodone/APAP 10-325MG 1 EACH TAB PO PRN ×3 (05:53→20:46)
--- NOTE | 2022-04-08 07:18 | XR ---
EXAMINATION TYPE: XR chest 1V portable DATE OF EXAM: 04/08/2022 7:07 AM COMPARISON: Chest radiographs from 04/07/2022. TECHNIQUE: XR chest 1V portable Frontal view of the chest. CLINICAL INDICATION:Female, 61 years old with history of post op right upper lobectomy; FINDINGS: Lungs/Pleura: Stable minimal right apical pneumothorax. Blunting of the left costophrenic angle. No f ocal consolidation. Pulmonary vascularity: Unremarkable. Heart/mediastinum: Cardiomediastinal silhouette is unremarkable. Musculoskeletal: No acute osseous pathology. Other findings: Similar right supraclavicular subcutaneous gas. Lines/Tubes: Stable position of right chest tube directed towards the right apex. IMPRESSION: 1. Stable minimal right apical pneumothorax with stable position of right chest tube. 2. Blunting of the left costophrenic angle suggests a small pleural effusion.
[2022-04-08] MEDS: IPRATROPIUM-ALBUTEROL 3 ML NEB IH SCH ×4 (07:29→20:03)
[2022-04-08] MEDS: FORMOTEROL FUMARATE 20 MCG/2 ML NEBU INHALATION SCH ×2 (07:29→20:03)
--- NOTE | 2022-04-08 08:13 | P.PN ---
Subjective Progress Note Date: 04/08/22 Principal diagnosis: Non-small cell carcinoma right upper lobe. Previous medical history chronic nicotine dependence with recent cessation, COVID-19 infection in November 2021, marijuana use, COPD with preoperative FEV1 79% of predicted value, remote history of cervical cancer, and history of chronic low back pain/herniated disks on chronic [facility] outpatient POD #4 robotic assisted thoracoscopic right upper lobectomy with mediastinal lymph node dissection Patient was seen and examined this morning sitting up in a recliner on the cardiac stepdown unit eating breakfast in no acute distress. She denies shortness of breath, does complain of pain with coughing. Remains in sinus rhythm, hemodynamically stable. Remains on room air with oxygen saturation in the mid 90s, only able to achieve 500 mL on incentive spirometry. Right-sided pleural chest tube remains present to waterseal, no air leak present this morning, chest x-ray reviewed. She has been ambulating in the hallway with assistance. No other new concerns. Objective - Vital Signs Vital signs: Vital Signs Temp 98.4 F 04/08/22 03:43 Pulse 88 04/08/22 07:39 Resp 14 04/08/22 03:43 BP 106/70 04/08/22 03:43 Pulse Ox 94 L 04/08/22 03:43 FiO2 Intake & Output 04/07/22 04/08/22 04/08/22 18:59 06:59 18:59 Intake Total 736 Output Total 0 Balance 736 Intake: Oral 736 Output: Drainage 0 Right Chest 0 Other: # Voids 1 # Bowel Movements 3 - Exam CONSTITUTIONAL: Appears comfortable, cooperative, no acute distress RESPIRATORY: Lungs sounds diminished bilaterally. Respirations even, nonlabored. Currently on room air with oxygen saturation 94%. Able to achieve 500 mL on incentive spirometry. Strong productive cough with pond sputum. CARDIOVASCULAR: S1, S2 present. Regular rate and rhythm, sinus rhythm on telemetry. Palpable peripheral pulses bilaterally. No edema present. No calf pain or tenderness noted. SCDs present. GASTROINTESTINAL: Abdomen soft, nontender, nondistended. Active bowel sounds present 4 quadrants. Tolerating diet. Positive flatus, negative bowel movement since surgery per patient GENITOURINARY: Continues to void clear, yellow urine INTEGUMENTARY: Skin is warm and dry with evidence of good perfusion NEUROLOGIC: Cranial nerves II through XII intact MUSKULOSKELETAL: Able to move all extremities, strength equal bilaterally, gait normal PSYCHIATRIC: Alert and oriented to person place and time, appropriate affect, intact judgment and insight INVASIVE LINES AND TUBES: Right pleural chest tube present to waterseal, no air leaks present, no drainage in the last 24 hours - Allied health notes Allied health notes reviewed: nursing - Labs CBC & Chem 7: 04/06/22 09:58 04/06/22 09:58 - Imaging and Cardiology Chest x-ray: report reviewed, image reviewed Assessment and Plan Assessment: 1. Non-small cell carcinoma right upper lobe, status post robotic assisted thoracoscopic right upper lobectomy with mediastinal lymph node dissection, final pathology pending 2. Chronic nicotine dependence with recent cessation 3. COVID-19 infection in November 2021 4. Occasional marijuana use 5. COPD with preoperative FEV1 79% of predicted value 6. Remote history of cervical cancer 7. History of chronic low back pain/herniated disks on chronic [facility] outpatient Plan: 1. Right pleural chest tube clamped. Repeat chest x-ray at noon. If stable will remove chest tube today 2. Encourage use of her incentive spirometry 10 times every hour while awake. 3. Follow pathology results, pending 4. Continue pain control per current regimen 5. Increase activity as tolerated, out of bed for all meals and encourage ambulation. PT/OT following 6. DVT and GI prophylaxis. 7. Medical management of other comorbidities per internal medicine and pulmonary service 8. If chest tube removed today likely will discharge to home tomorrow morning 9. More recommendations to follow
[2022-04-08] MEDS: METOPROLOL TARTRATE 25 MG TAB PO SCH ×2 (09:04→20:47)
[2022-04-08] MEDS: SENNOSIDES 8.6 MG TAB PO SCH ×2 (09:04→20:47)
[2022-04-08] MEDS: HEPARIN SODIUM,PORCINE/PF 5,000 UNIT/0.5 ML SYRINGE SQ SCH ×2 (09:04→17:16)
[2022-04-08] MEDS ORDERED: HYDROmorphone 0.5 MG/0.5 ML SYRINGE IVP STA (09:06)
[2022-04-08 09:35] LABS: HCT 32.3 % (34.0-46.0); HGB 10.9 gm/dL (11.4-16.0); MCH 32.6 pg (25.0-35.0); MCHC 33.6 g/dL (31.0-37.0); MCV 96.9 fL (80.0-100.0); Mean Platelet Volume 8.2; Platelet Count 277 k/uL (150-450); RBC 3.33 m/uL (3.80-5.40); WBC 12.7 k/uL (3.8-10.6)
[2022-04-08 09:41] LABS: African American GFR (CKD) >90 (>60 ml/min/1.73 sqM); Anion Gap 13 mmol/L; Blood Urea Nitrogen 9 mg/dL (7-17); Calcium 8.8 mg/dL (8.4-10.2); Carbon Dioxide 27 mmol/L (22-30); Chloride 96 mmol/L (98-107); Glucose 170 mg/dL (74-99); Non-African American GFR(CKD) >90 (>60 ml/min/1.73 sqM); Potassium 3.8 mmol/L (3.5-5.1); Sodium 136 mmol/L (137-145)
--- NOTE | 2022-04-08 10:02 | P.PN ---
Subjective Progress Note Date: 04/08/22 Patient was seen and examined. No acute events overnight. Patient reports persistent right-sided chest pain. CXR ordered for the afternoon, possible plans of DC of chest tubes. 750 ml on incentive spirometer. General: non toxic, mild distress, appears at stated age, tearful Derm: warm, dry Head: atraumatic, normocephalic, symmetric Eyes: EOMI, no lid lag, anicteric sclera Mouth: no lip lesion, mucus membranes moist Cardiovascular: S1S2 reg, no murmur, positive posterior tibial pulse bilateral, Lungs: Decreased breath sounds on the right, surgical dressing clean dry and intact, right-sided chest tube, no rhonchi, no rales , no accessory muscle use Ext: no gross muscle atrophy, no edema, no contractures Neuro: no focal neuro deficits Psych: Alert, oriented, appropriate affect #Leukocytosis #Acute hypoxic respiratory failure #Atelectasis #Pneumothorax #COPD not in acute exacerbation #Former smoker #Status post robotic-assisted right upper lobe resection with mediastinal lymph node dissection POD 3 Her leukocytosis is likely reactive. There are no signs of acute infection. Plans to repeat CBC tomorrow morning. Patient will be given supplemental O2 to maintain O2 saturation greater than 92%. DuoNeb as needed for shortness of breath and wheezing. Incentive spirometer. Telemetry monitoring. Management as per Cardiothoracic surgery. DVT prophylaxis: Heparin Discussed with: Patient Anticipated discharge: Depending on clinical course Anticipated discharge place: Home Objective - Vital Signs Vital signs: Vital Signs Temp 98.0 F 04/08/22 08:00 Pulse 119 H 04/08/22 08:00 Resp 14 04/08/22 03:43 BP 106/71 04/08/22 08:00 Pulse Ox 93 L 04/08/22 08:00 FiO2 Intake & Output 04/07/22 04/08/22 04/08/22 18:59 06:59 18:59 Intake Total 736 240 Output Total 0 Balance 736 240 Intake: Oral 736 240 Output: Drainage 0 Right Chest 0 Other: # Voids 1 # Bowel Movements 3 - Labs CBC & Chem 7: 04/08/22 08:42 04/08/22 08:42 Labs: Abnormal Lab Results - Last 24 Hours (Table) 04/08/22 04/08/22 Range/Units 08:42 08:42 WBC 12.7 H (3.8-10.6) k/uL RBC 3.33 L (3.80-5.40) m/uL Hgb 10.9 L (11.4-16.0) gm/dL Hct 32.3 L (34.0-46.0) % Sodium 136 L (137-145) mmol/L Chloride 96 L (98-107) mmol/L Glucose 170 H (74-99) mg/dL
--- NOTE | 2022-04-08 15:19 | P.PN ---
Subjective Progress Note Date: 04/08/22 Principal diagnosis: Status post robotic-assisted thoracoscopic right upper lobectomy with mediastinal lymph node dissection postoperative day #4. Patient is status post robotic-assisted thoracoscopic right upper lobectomy with mediastinal lymph node dissection for non-small cell lung cancer, presumed stage T2 N0 M0. Lymph node pathology is pending. Patient is doing well, denies any shortness of breath, she is scheduled to be discharged home tomorrow. Her chest tube has been removed uneventfully. She is ambulating in the hallway with assistance CBC is relatively unremarkable electrolytes are normal renal profile is normal Objective - Vital Signs Vital signs: Vital Signs Temp 98.0 F 04/08/22 08:00 Pulse 99 04/08/22 12:00 Resp 16 04/08/22 08:00 BP 107/73 04/08/22 12:00 Pulse Ox 94 L 04/08/22 12:00 FiO2 Intake & Output 04/07/22 04/08/22 04/08/22 18:59 06:59 18:59 Intake Total 736 240 Output Total 0 Balance 736 240 Intake: Oral 736 240 Output: Drainage 0 Right Chest 0 Other: Voiding Method Toilet # Voids 1 # Bowel Movements 3 - Exam Physical Exam: Revealed a 61-year-old in no distress on room air Head: Atraumatic, normocephalic. HEENT:[Neck is supple.] [No neck masses.] [No thyromegaly.] [No JVD.] Chest: [Clear throughout, no crackles, no rhonchi, no wheezes.] Cardiac Exam: [Normal S1 and S2, no S3 gallop, no murmur.] Abdomen: [Soft, nontender, no megaly, no rebound, no guarding, normal bowel sounds.] Extremities: [No clubbing, no edema, no cyanosis.] Neurological Exam: [No focal neurologic deficit.] Alert oriented 3 Psychiatric: Normal mood affect and normal mental status examination. Musculoskeletal: No deformities and no limitation in range of motion - Labs CBC & Chem 7: 04/08/22 08:42 04/08/22 08:42 Labs: Abnormal Lab Results - Last 24 Hours (Table) 04/08/22 04/08/22 Range/Units 08:42 08:42 WBC 12.7 H (3.8-10.6) k/uL RBC 3.33 L (3.80-5.40) m/uL Hgb 10.9 L (11.4-16.0) gm/dL Hct 32.3 L (34.0-46.0) % Sodium 136 L (137-145) mmol/L Chloride 96 L (98-107) mmol/L Glucose 170 H (74-99) mg/dL Assessment and Plan Assessment: Impression: Non-small cell lung cancer presumed T2 N0 M0 status post thoracoscopic right upper lobectomy with mediastinal node dissection, final pathology is pending Chronic nicotine dependence Mild COPD FEV1 of 75% History of cervical cancer Recommendation: Continue incentive spirometry Continue ambulation Continue bronchodilators Continue GI and DVT prophylaxis Agree with discharge planning in the next 24 hours. Follow-up on outpatient basis with Dr. Conroy Time with Patient: Less than 30
[2022-04-08] MEDS: traMADol 50 MG TAB PO PRN (18:40)
[2022-04-09] MEDS: HEPARIN SODIUM,PORCINE/PF 5,000 UNIT/0.5 ML SYRINGE SQ SCH ×2 (00:10→09:14)
[2022-04-09] MEDS: traMADol 50 MG TAB PO PRN (00:11)
[2022-04-09] MEDS: HYDROcodone/APAP 10-325MG 1 EACH TAB PO PRN ×2 (04:04→10:58)
[2022-04-09] MEDS: PANTOPRAZOLE 40 MG TABLET PO SCH (06:04)
[2022-04-09] MEDS: IPRATROPIUM-ALBUTEROL 3 ML NEB IH SCH ×2 (07:53→11:32)
[2022-04-09] MEDS: FORMOTEROL FUMARATE 20 MCG/2 ML NEBU INHALATION SCH (07:53)
--- NOTE | 2022-04-09 08:48 | P.PN ---
Subjective Progress Note Date: 04/09/22 Principal diagnosis: Non-small cell carcinoma right upper lobe. Previous medical history chronic nicotine dependence with recent cessation, COVID-19 infection in November 2021, marijuana use, COPD with preoperative FEV1 79% of predicted value, remote history of cervical cancer, and history of chronic low back pain/herniated disks on chronic [facility] outpatient POD #5 robotic assisted thoracoscopic right upper lobectomy with mediastinal lymph node dissection Patient was seen and examined this morning sitting up in a recliner on the cardiac stepdown unit eating breakfast in no acute distress. She denies shortness of breath, does complain of pain with coughing, states she feels better than yesterday. Remains in sinus rhythm, hemodynamically stable. Remains on room air with oxygen saturation in the mid 90s, only able to achieve 500-750 mL on incentive spirometry. Right-sided pleural chest tube was discontinued yesterday without incident. Repeat chest x-ray this morning does demonstrate pneumothorax which was somewhat expected. She has been ambulating in the hallway with assistance. Pathology results present, TNM classification T1b N1 M0 making this stage IIB poorly differentiated pulmonary adenocarcinoma, discussed with patient. No other new concerns. Objective - Vital Signs Vital signs: Vital Signs Temp 98.4 F 04/09/22 04:10 Pulse 98 04/09/22 08:12 Resp 15 04/09/22 04:10 BP 106/65 04/09/22 04:10 Pulse Ox 97 04/09/22 07:55 FiO2 Intake & Output 04/08/22 04/09/22 04/09/22 18:59 06:59 18:59 Intake Total 240 118 Balance 240 118 Intake: Oral 240 118 Other: Voiding Method Toilet - Exam CONSTITUTIONAL: Appears comfortable, cooperative, no acute distress RESPIRATORY: Lungs sounds diminished bilaterally. Respirations even, nonlabored. Currently on room air with oxygen saturation 97%. Able to achieve 500-750 mL on incentive spirometry. Strong productive cough with pond sputum. CARDIOVASCULAR: S1, S2 present. Regular rate and rhythm, sinus rhythm on telemetry. Palpable peripheral pulses bilaterally. No edema present. No calf pain or tenderness noted. SCDs present. GASTROINTESTINAL: Abdomen soft, nontender, nondistended. Active bowel sounds present 4 quadrants. Tolerating diet. GENITOURINARY: Continues to void clear, yellow urine INTEGUMENTARY: Skin is warm and dry with evidence of good perfusion NEUROLOGIC: Cranial nerves II through XII intact MUSKULOSKELETAL: Able to move all extremities, strength equal bilaterally, gait normal PSYCHIATRIC: Alert and oriented to person place and time, appropriate affect, intact judgment and insight - Allied health notes Allied health notes reviewed: nursing - Labs CBC & Chem 7: 04/08/22 08:42 04/08/22 08:42 Labs: Abnormal Lab Results - Last 24 Hours (Table) 04/08/22 04/08/22 Range/Units 08:42 08:42 WBC 12.7 H (3.8-10.6) k/uL RBC 3.33 L (3.80-5.40) m/uL Hgb 10.9 L (11.4-16.0) gm/dL Hct 32.3 L (34.0-46.0) % Sodium 136 L (137-145) mmol/L Chloride 96 L (98-107) mmol/L Glucose 170 H (74-99) mg/dL - Imaging and Cardiology Chest x-ray: image reviewed Assessment and Plan Assessment: 1. Non-small cell carcinoma right upper lobe, status post robotic assisted thoracoscopic right upper lobectomy with mediastinal lymph node dissection, final pathology consistent with stage IIB poorly differentiated pulmonary adenocarcinoma 2. Chronic nicotine dependence with recent cessation 3. COVID-19 infection in November 2021 4. Occasional marijuana use 5. COPD with preoperative FEV1 79% of predicted value 6. Remote history of cervical cancer 7. History of chronic low back pain/herniated disks on chronic [facility] outpatient 8. Pneumothorax, somewhat expected Plan: 1. Chest tube removed history, chest x-ray reviewed this morning 2. Encourage use of her incentive spirometry 10 times every hour while awake. 3. Pathology results discussed with the patient 4. Continue pain control per current regimen 5. Increase activity as tolerated, out of bed for all meals and encourage ambulation. PT/OT following 6. DVT and GI prophylaxis. 7. Medical management of other comorbidities per internal medicine and pulmonary service 8. Will discharge to home today with follow-up chest x-ray Friday. Discharge appointment made with Dr. Tellez and Dr. Conroy 9. Patient will need outpatient follow-up with oncology
--- NOTE | 2022-04-09 08:49 | XR ---
EXAMINATION TYPE: XR chest 2V DATE OF EXAM: 04/09/2022 COMPARISON: 04/08/2022 HISTORY: 61-year-old female postlobectomy follow-up TECHNIQUE: PA and lateral views FINDINGS: Interval removal of the right-sided chest tube. There is a small to moderate-sized pneumothorax super iorly measuring 1.5 cm at the apex and 1.7 cm along the lateral upper hemithorax. Small pleural effus ion noted. Similar densities along the right heart margin likely post lobectomy change. Some mild pat yarely density at the left base is similar. IMPRESSION: 1. Small to moderate pneumothorax estimated at 25% after right chest tube removal. Small right-sided pleural effusion. 2. Mild patchy density at the left base is similar. Critical findings called to Nurse Turpin in [facility] at 8:45am.
[2022-04-09 08:58] LABS: HCT 32.7 % (34.0-46.0); HGB 11.1 gm/dL (11.4-16.0); MCHC 33.9 g/dL (31.0-37.0); MCV 97.3 fL (80.0-100.0); Mean Platelet Volume 7.7; Platelet Count 330 k/uL (150-450); RBC 3.36 m/uL (3.80-5.40); RDW 11.8 % (11.5-15.5); WBC 12.8 k/uL (3.8-10.6)
[2022-04-09 09:09] LABS: African American GFR (CKD) >90 (>60 ml/min/1.73 sqM); Anion Gap 10 mmol/L; Blood Urea Nitrogen 10 mg/dL (7-17); Calcium 8.6 mg/dL (8.4-10.2); Carbon Dioxide 27 mmol/L (22-30); Chloride 97 mmol/L (98-107); Glucose 142 mg/dL (74-99); Non-African American GFR(CKD) >90 (>60 ml/min/1.73 sqM); Potassium 3.9 mmol/L (3.5-5.1); Sodium 134 mmol/L (137-145)
[2022-04-09] MEDS: SENNOSIDES 8.6 MG TAB PO SCH (09:14)
[2022-04-09] MEDS: METOPROLOL TARTRATE 25 MG TAB PO SCH (09:14)
[2022-04-09 10:55] VITALS: BP 118/71; PULSE 123; RESP 16; TEMP 98.2
--- NOTE | 2022-04-09 11:05 | P.DS ---
Providers Date of admission: 04/04/22 05:44 Expected date of discharge: 04/09/22 Attending physician: Leodan Tellez Consults: 04/04/22 13:17 Consult Physician Routine Consulting Provider: Balbir Conroy Consult Reason/Comments: pulmonary management Do you want consulting provider notified?: Yes Consult Physician Routine Consulting Provider: Ani Valadez Consult Reason/Comments: Medical management Do you want consulting provider notified?: Yes Primary care physician: Hugo Morales MD Hospital Course: FINAL DIAGNOSIS: 1. Non-small cell carcinoma right upper lobe, final pathology consistent with stage IIB poorly differentiated pulmonary adenocarcinoma 2. Chronic nicotine dependence with recent cessation 3. COVID-19 infection in November 2021 4. Occasional marijuana use 5. COPD with preoperative FEV1 79% of predicted value 6. Remote history of cervical cancer 7. History of chronic low back pain/herniated discs on chronic [place] outpatient 8. Pneumothorax, somewhat expected PRINCIPAL PROCEDURE: 1. Robotic assisted thoracoscopic right upper lobectomy with mediastinal lymph node dissection HISTORY OF PRESENT ILLNESS: This is a 61-year-old female patient who has a long history of smoking with recent cessation when she was diagnosed with Covid in November 2021. Prior to that she had been a pack-a-day smoker for 35 years. She recovered from Covid and was feeling much better, however her primary care physician had noted that chest x-ray completed at the time of Covid demonstrated a right upper lobe nodule. She had subsequently underwent a screening CT scan which confirmed presence of a 1.75 mm spiculated nodule in the right upper lobe, it did not demonstrate any evidence of adenopathy. Subsequently she underwent a PET scan which showed significant uptake in the tumor with an SUV of 7.9, there was no evidence of uptake in the hilum or mediastinum and no evidence of metastatic disease. The patient was referred to Dr. Tellez from cardiothoracic surgery. She was recommended to undergo robotic-assisted right upper lobectomy. The usual perioperative course was discussed in detail with the patient, all risks and benefits were explained, all questions were answered, and consent was obtained to proceed with surgery. The patient was encouraged to continue with smoking cessation. She was recommended to undergo preoperative EBUS which was completed 03/21/2022 and which demonstrated rare clusters of atypical epithelioid cells suspicious for non-small cell carcinoma in the right upper lobe, and she was scheduled for surgical lobectomy at the earliest possible date. HOSPITAL COURSE: The patient was brought to the hospital on 04/04/2022, taken to the preoperative area, prepared in the usual fashion, and subsequently taken to the operating room where Dr. Tellez performed a robotic-assisted thoracoscopic right upper lobectomy with mediastinal lymph node dissection. Upon completion of surgery the patient was extubated and taken to the recovery room for hemodynamic monitoring. Eventually she was admitted to 3 S. cardiac stepdown unit for continued recovery and monitoring. Her oxygen was titrated down, she continued to work with physical and occupational therapy, she was tolerating oral diet, and her pain was mostly controlled. Her chest tube was placed to waterseal and eventually discontinued on postop day #4. Follow-up x-ray did demonstrate a small, stable pneumothorax which was somewhat expected, she remained in no distress on room air and was ready to be discharged to home on postoperative day #5. She received written and verbal instruction regarding her medications, activity restrictions, signs and symptoms requiring physician notification, and follow-up appointments along with expectations for chest x-ray to be completed in the next few days. Patient Condition at Discharge: Stable Plan - Discharge Summary Discharge Rx Participant: Yes New Discharge Prescriptions: New Metoprolol Tartrate [Lopressor] 25 mg PO BID #60 tab Sennosides [Senokot] 8.6 mg PO BID PRN tab PRN Reason: Constipation Continue HYDROcodone/APAP 10-325MG [[place] 10-325] 1 tab PO QID PRN PRN Reason: Pain Calcium Carbonate/Vitamin D3 [Calcium 600 mg-Vit D3 10 mcg (400 Unit)] 1 each PO DAILY Discharge Medication List HYDROcodone/APAP 10-325MG [[place] 10-325] 1 tab PO QID PRN 12/20/21 [History] Calcium Carbonate/Vitamin D3 [Calcium 600 mg-Vit D3 10 mcg (400 Unit)] 1 each PO DAILY 03/20/22 [History] Metoprolol Tartrate [Lopressor] 25 mg PO BID #60 tab 04/09/22 [Rx] Sennosides [Senokot] 8.6 mg PO BID PRN tab 04/09/22 [Rx] Follow up Appointment(s)/Referral(s): Leodan Tellez MD [STAFF PHYSICIAN] - 04/18/22 1:00 pm Hugo Morales MD [Primary Care Provider] - As Needed Balbir Conroy MD [STAFF PHYSICIAN] - 04/29/22 1:00 pm Ambulatory/Diagnostic Orders: XR chest 2V [RAD.AMB] Time Frame: 04/15/22, Facility: [facility], Location: [facility] Activity/Diet/Wound Care/Special Instructions: DISCHARGE INSTRUCTIONS: 1. No driving for 2 weeks, or until physician gives their ok. 2. No lifting, pushing, or pulling more than 10 pounds for 2 weeks. The physician will advise of any restriction changes. 3. Continue pain control per as needed orders 4. Continue with incentive spirometry and splinting until otherwise directed by the physician. 5. Leave chest tube dressing for 48 hours. After that, remove all dressings and shower daily. 6. Routine incision care. No powders, lotions, ointments on incisions. 7. Please call surgeon/STAMP MOUNTER for temp greater than 101 F or purulent drainage from incisions. 8. Continued smoking cessation counseling and program information provided. Discharge Disposition: HOME SELF-CARE
--- NOTE | 2022-04-09 15:51 | P.PN ---
Subjective Progress Note Date: 04/09/22 Principal diagnosis: Status post robotic-assisted thoracoscopic right upper lobectomy with mediastinal lymph node dissection postoperative day #5 Patient is status post robotic-assisted thoracoscopic right upper lobectomy with mediastinal lymph node dissection for non-small cell lung cancer, presumed stage T2 N0 M0. Lymph node pathology is pending. Patient is doing well, denies any shortness of breath, she is scheduled to be discharged home tomorrow. Her chest tube has been removed uneventfully. She is ambulating in the hallway with assistance CBC is relatively unremarkable electrolytes are normal renal profile is normal Patient was seen today, doing well, asymptomatic, patient is going to be discharged home today. Chest x-ray noted. Pathology was also noted, patient had a positive RA 11 lymph node. Hence patient may have to be seen on outpatient basis by oncology. Small pneumothorax noted 25% after the right chest tube removal. However patient is clinically doing well, asymptomatic, and I believe she could be cleared to be discharged home if cleared by thoracic surgery Objective - Vital Signs Vital signs: Vital Signs Temp 98.2 F 04/09/22 08:00 Pulse 98 04/09/22 08:12 Resp 16 04/09/22 08:00 BP 118/71 04/09/22 08:00 Pulse Ox 94 L 04/09/22 08:00 FiO2 Intake & Output 04/08/22 04/09/22 04/09/22 18:59 06:59 18:59 Intake Total 240 118 Balance 240 118 Intake: Oral 240 118 Other: Voiding Method Toilet Toilet - Exam Physical Exam: Revealed a 61-year-old in no distress on room air Head: Atraumatic, normocephalic. HEENT:[Neck is supple.] [No neck masses.] [No thyromegaly.] [No JVD.] Chest: [Clear throughout, no crackles, no rhonchi, no wheezes.] Cardiac Exam: [Normal S1 and S2, no S3 gallop, no murmur.] Abdomen: [Soft, nontender, no megaly, no rebound, no guarding, normal bowel so unds.] Extremities: [No clubbing, no edema, no cyanosis.] Neurological Exam: [No focal neurologic deficit.] Alert oriented 3 Psychiatric: Normal mood affect and normal mental status examination. Musculoskeletal: No deformities and no limitation in range of motion - Labs CBC & Chem 7: 04/09/22 08:36 04/09/22 08:36 Labs: Abnormal Lab Results - Last 24 Hours (Table) 04/09/22 04/09/22 Range/Units 08:36 08:36 WBC 12.8 H (3.8-10.6) k/uL RBC 3.36 L (3.80-5.40) m/uL Hgb 11.1 L (11.4-16.0) gm/dL Hct 32.7 L (34.0-46.0) % Sodium 134 L (137-145) mmol/L Chloride 97 L (98-107) mmol/L Creatinine 0.46 L (0.52-1.04) mg/dL Glucose 142 H (74-99) mg/dL Assessment and Plan Assessment: Impression: Non-small cell lung cancer , patient had positive 11R lymph node Chronic nicotine dependence Mild COPD FEV1 of 75% History of cervical cancer Postoperative pneumothorax, expectED Recommendation: Will clear patient for discharge if cleared by surgery Continue incentive spirometry Continue ambulation Continue bronchodilators Follow-up on outpatient basis with Dr. Conroy Time with Patient: Less than 30
== END 2022-04-09 12:00 | disposition home or self-care (01) | DRG 163 ==
LOC: 2ORMAIN 05:44 → 3SCARD 12:17
PROVIDERS: ADMIT Thoracic Surgery (Cardiothoracic Vascular Surgery); ATTEND Thoracic Surgery (Cardiothoracic Vascular Surgery)
PROC: 07B74ZX Excision of Thorax Lymphatic, Percutaneous Endoscopic Approach, Diagnostic (ICD-10-PCS; principal; 2022-04-04 07:30)
PROC: 0BTC4ZZ Resection of Right Upper Lung Lobe, Percutaneous Endoscopic Approach (ICD-10-PCS; principal; 2022-04-04 07:30)
PROC: 8E0W4CZ Robotic Assisted Procedure of Trunk Region, Percutaneous Endoscopic Approach (ICD-10-PCS; principal; 2022-04-04 07:30)
DX: C34.11 Malignant neoplasm of upper lobe, right bronchus or lung (principal); J96.01 Acute respiratory failure with hypoxia; J95.811 Postprocedural pneumothorax; J98.11 Atelectasis; T79.7XXA Traumatic subcutaneous emphysema, initial encounter; D72.829 Elevated white blood cell count, unspecified; Z87.891 Personal history of nicotine dependence; J43.9 Emphysema, unspecified; J47.9 Bronchiectasis, uncomplicated; Z85.118 Personal history of other malignant neoplasm of bronchus and lung; Z85.41 Personal history of malignant neoplasm of cervix uteri; Z86.16 Personal history of COVID-19; M51.36 Other intervertebral disc degeneration, lumbar region; M54.50 Low back pain, unspecified; G89.29 Other chronic pain; Z79.891 Long term (current) use of opiate analgesic; Z79.899 Other long term (current) drug therapy; Z88.6 Allergy status to analgesic agent; Z88.0 Allergy status to penicillin; Z88.2 Allergy status to sulfonamides; Z88.8 Allergy status to other drugs, medicaments and biological substances
CPT/HCPCS: 64999; 71045; 71046; 80048; 85025; 85027; 86850; 86900; 86901; 88305; 88309; 94640; 94760

== ENCOUNTER → 2022-04-15 | Outpatient (CLI) | payer OTHER ==
--- NOTE | 2022-04-15 15:08 | XR ---
EXAMINATION TYPE: XR chest 2V DATE OF EXAM: 04/15/2022 1:23 PM COMPARISON: Chest radiographs from 04/09/2022 TECHNIQUE: XR chest 2V Frontal and lateral views of the chest. CLINICAL INDICATION:Female, 61 years old with history of J95.811 POSTPROCEDURAL PNEUMOTHORAX; FINDINGS: Lungs/Pleura: There is no evidence of pleural effusion, focal consolidation, or pneumothorax. Pulmonary vascularity: Unremarkable. Heart/mediastinum: Cardiomediastinal silhouette is unremarkable. Musculoskeletal: No acute osseous pathology. IMPRESSION: No pneumothorax visualized on today's exam. No acute process.
== END | disposition home or self-care (01) ==
LOC: RADXRMAIN 13:14
PROVIDERS: ATTEND Nurse Practitioner Acute Care
DX: J95.811 Postprocedural pneumothorax (principal)
CPT/HCPCS: 71046

== ENCOUNTER → 2022-05-24 | Outpatient (CLI) | payer OTHER ==
--- NOTE | 2022-05-25 04:34 | MR ---
EXAMINATION TYPE: MR brain wo/w con DATE OF EXAM: 05/24/2022 COMPARISON: None HISTORY: Lung cancer, evaluating for metastatic disease. CONTRAST: Standard multiplanar, multisequence MRI departmental protocol images were obtained without contrast a nd with 5 mL intravenous Gadavist gadolinium contrast. There is mild cerebral cortical atrophy. There is no mass effect or midline shift. No sign of intracr anial hemorrhage. Diffusion images show no sign of an acute infarct. Corpus callosum is intact. Sella turcica is intact. The brainstem is intact. No evidence of cerebral edema. Contrast images show no pathologic enhancement. There is normal enhancement of the venous sinuses. IMPRESSION: Negative MR scan of the brain. No evidence of metastatic disease.
== END | disposition home or self-care (01) ==
LOC: RADMRIMAIN 16:07
PROVIDERS: ATTEND Internal Medicine Hematology & Oncology
DX: C34.11 Malignant neoplasm of upper lobe, right bronchus or lung (principal)
CPT/HCPCS: 70553; A9585

== ENCOUNTER → 2022-09-10 | Outpatient (CLI) | payer OTHER ==
--- NOTE | 2022-09-10 17:10 | CT ---
EXAMINATION TYPE: CT chest w con CT DLP: 403 mGycm, Automated exposure control for dose reduction was used. DATE OF EXAM: 09/10/2022 4:14 PM COMPARISON: CT 03/21/2022, PET/CT 322 CLINICAL INDICATION:Female, 61 years old with history of C34.90, follow up on lung carcinoma. TECHNIQUE: Multiple axial images were obtained through the chest. Sagittal and coronal reformats were created for review. Contrast used:100 cc mL of Isovue 300 with IV Contrast Oral contrast used: none. FINDINGS: LUNGS/ PLEURA: Postsurgical changes right lung apex. No new or enlarging pulmonary nodules. Mild scat tered centrilobular and paraseptal emphysema changes. AIRWAY: Patent and unremarkable. HEART: Size within normal limits. MEDIASTINUM: No gross evidence of adenopathy. VASCULATURE: No aortic aneurysm. Atherosclerosis of the arterial vasculature. MUSCULOSKELETAL: No acute osseous abnormalities SOFT TISSUES/LYMPH NODES: Unremarkable. LOWER NECK: No significant findings. UPPER ABDOMEN: Left superior pole simple appearing renal cysts. Bilateral subcentimeter probable cyst . IMPRESSION: 1. Postsurgical changes without evidence for recurrence or metastatic disease. 2. Mild emphysema changes.
== END | disposition home or self-care (01) ==
LOC: RADCTMAIN 15:22
PROVIDERS: ATTEND Internal Medicine Critical Care Medicine
DX: C34.90 Malignant neoplasm of unspecified part of unspecified bronchus or lung (principal); J43.9 Emphysema, unspecified
CPT/HCPCS: 71260; Q9967

== ENCOUNTER 2023-01-23 22:25 | Emergency (ER) | payer OTHER ==
[2023-01-23 22:40] VITALS: RESP 16; TEMP 97.8
[2023-01-23 23:07] LABS: Basophils % (A) 0 %; Eosinophils # (A) 0.2 k/uL (0-0.7); Eosinophils % (A) 3 %; HCT 33.4 % (34.0-46.0); HGB 12.2 gm/dL (11.4-16.0); Lymphocytes # (A) 2.5 k/uL (1.0-4.8); Lymphocytes % (A) 34 %; MCHC 36.5 g/dL (31.0-37.0); MCV 93.2 fL (80.0-100.0); Mean Platelet Volume 7.8; Monocytes # (A) 0.4 k/uL (0-1.0); Monocytes % (A) 5 %; Neutrophils % (A) 55 %; Platelet Count 203 k/uL (150-450); RBC 3.58 m/uL (3.80-5.40); WBC 7.2 k/uL (3.8-10.6)
--- NOTE | 2023-01-23 23:09 | XR ---
EXAM: XR Chest, 2 Views CLINICAL HISTORY: ITS.REASON XR Reason: Chest Pain TECHNIQUE: Frontal and lateral views of the chest. COMPARISON: No relevant prior studies available. FINDINGS: Lungs: Unremarkable. No consolidation. Pleural space: Unremarkable. No pneumothorax. Heart: Unremarkable. No cardiomegaly. Mediastinum: Unremarkable. Bones/joints: Unremarkable. IMPRESSION: Normal chest x-rays.
[2023-01-23 23:17] LABS: Prothrombin Time 10.5 sec (9.0-12.0)
[2023-01-23 23:18] LABS: Partial Thromboplastin Time 23.1 sec (22.0-30.0)
[2023-01-23 23:25] LABS: ALT 23 U/L (4-34); AST 28 U/L (14-36); African American GFR (CKD) >90 (>60 ml/min/1.73 sqM); Albumin 4.2 g/dL (3.5-5.0); Alkaline Phosphatase 118 U/L (38-126); Anion Gap 10 mmol/L; Blood Urea Nitrogen 11 mg/dL (7-17); Calcium 9.3 mg/dL (8.4-10.2); Carbon Dioxide 23 mmol/L (22-30); Chloride 105 mmol/L (98-107); Glucose 119 mg/dL (74-99); Lipase 105 U/L (23-300); Magnesium 1.8 mg/dL (1.6-2.3); Non-African American GFR(CKD) >90 (>60 ml/min/1.73 sqM); Potassium 3.7 mmol/L (3.5-5.1); Sodium 138 mmol/L (137-145); Total Bilirubin 0.8 mg/dL (0.2-1.3); Total Protein 7.4 g/dL (6.3-8.2)
--- NOTE | 2023-01-23 23:30 | ED ---
Chest Pain HPI - General Chief Complaint: Chest Pain Stated Complaint: Chest Pain Time Seen by Provider: 01/23/23 22:40 Source: patient, EMS Mode of arrival: EMS Limitations: no limitations - History of Present Illness Initial Comments: 62-year-old female with past history of lung cancer who presents to the emergency department reporting chest pain. States that the chest pain started 40 minutes prior to hospital arrival. She describes it as a pressure sensation in the substernal region without radiation. States that she was making a cup of tea when it started. She tried to move around and burp to get it to stop. Her son noted that she was uncomfortable and recommended that they call and EMS. She was given 4 chewable aspirins the pain was alleviated with these medications. She had associated diaphoresis. No nausea or vomiting. No previous history of cardiac disease. No calf pain or swelling. No history of DVT or PE. She denies fevers. No cough. Patient arrives to the emergency department is completely pain-free. No other alleviating, precipitating or modifying factors - Related Data Home Medications Medication Instructions Recorded Confirmed HYDROcodone/APAP 10-325MG [[place] 1 tab PO QID PRN 12/20/21 04/04/22 10-325] Calcium Carbonate/Vitamin D3 1 each PO DAILY 03/20/22 04/04/22 [Calcium 600 mg-Vit D3 10 mcg (400 Unit)] Previous Rx's Medication Instructions Recorded Metoprolol Tartrate [Lopressor] 25 mg PO BID #60 tab 04/09/22 Sennosides [Senokot] 8.6 mg PO BID PRN tab 04/09/22 Allergies Allergy/AdvReac Type Severity Reaction Status Date / Time bacitracin Allergy Rash/Hives Verified 04/04/22 06:07 [From Neosporin ([id number])] ibuprofen Allergy Anaphylaxis Verified 04/04/22 06:07 neomycin Allergy Rash/Hives Verified 04/04/22 06:07 [From Neosporin ([id number])] Penicillins Allergy Anaphylaxis Verified 04/04/22 06:07 polymyxin B Allergy Rash/Hives Verified 04/04/22 06:07 [From Neosporin ([id number])] aspirin AdvReac STOMACH Verified 04/04/22 06:07 BLEEDING propoxyphene AdvReac Unknown Verified 04/04/22 06:07 [From Darvocet-N] Review of Systems ROS Statement: Those systems with pertinent positive or pertinent negative responses have been documented in the HPI. ROS Other: All systems not noted in ROS Statement are negative. Past Medical History Past Medical History: Cancer Additional Past Medical History / Comment(s): low back pain, herniated disc,. 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 CERVICAL CANCER AGE 27 History of Any Multi-Drug Resistant Organisms: None Reported Past Surgical History: No Surgical Hx Reported Additional Past Surgical History / Comment(s): CONIZATION FOR CERVICAL CANCER Past Anesthesia/Blood Transfusion Reactions: No Reported Reaction Additional Drug Use History / Comment(s): USES MARIJUANA ON OCCASION- - Past Family History Mother Family Medical History: No Reported History General Exam Limitations: no limitations General appearance: alert, in no apparent distress Head exam: Present: atraumatic, normocephalic, normal inspection Eye exam: Present: normal appearance, PERRL, EOMI. Absent: scleral icterus, conjunctival injection, periorbital swelling ENT exam: Present: normal exam, mucous membranes moist Neck exam: Present: normal inspection. Absent: tenderness, meningismus, l ymphadenopathy Respiratory exam: Present: normal lung sounds bilaterally. Absent: respiratory distress, wheezes, rales, rhonchi, stridor Cardiovascular Exam: Present: regular rate, normal rhythm, normal heart sounds. Absent: systolic murmur, diastolic murmur, rubs, gallop, clicks GI/Abdominal exam: Present: soft, normal bowel sounds. Absent: distended, tenderness, guarding, rebound, rigid Extremities exam: Present: normal inspection, full ROM, normal capillary refill. Absent: tenderness, pedal edema, joint swelling, calf tenderness Back exam: Present: normal inspection Neurological exam: Present: alert, oriented X3, CN II-XII intact Psychiatric exam: Present: normal affect, normal mood Skin exam: Present: warm, dry, intact, normal color. Absent: rash Course Vital Signs 01/23/23 01/24/23 01/24/23 22:37 00:19 01:11 Temperature 97.8 F Pulse Rate 90 85 80 Respiratory 16 16 16 Rate Blood Pressure 153/102 152/101 152/99 O2 Sat by Pulse 97 100 98 Oximetry Chest Pain MDM - MDM Was pt. sent in by a medical professional or institution (Dr., PA, [facility] [employer], urgent ca re, hospital, or halfway...) When possible be specific @ -No Did you speak to anyone other than the patient for history (EMS, parent, family, police, friend...)? What history was obtained from this source @ -I spoke with EMS in regards to the patient's symptoms Did you review nursing and triage notes (agree or disagree)? Why? @ -I reviewed and agree with nursing and triage notes Were old charts reviewed (outside hosp., previous admission, EMS record, old EKG, old radiological studies, urgent care reports/EKG's, halfway records)? Report findings @ -No old charts were reviewed Differential Diagnosis (chest pain, altered mental status, abdominal pain women, abdominal pain men, vaginal bleeding, weakness, fever, dyspnea, syncope, headache, dizziness, GI bleed, back pain, seizure, CVA, palpatations, mental health, musculoskeletal)? @ -Differential Chest Pain: Stable Angina, Unstable Angina, STEMI, NSTEMI Aortic Dissection, Pneumothorax, Musculoskeletal, Esophageal Spasm GERD, Cholecystitis, Pancreatitis, Zoster, this is not meant to be an all-inclusive list. EKG interpreted by me (3pts min.). @ -Yes and demonstrates sinus rhythm rate of 84. CT interval 201. QRS 85. QTC 375. No acute ST segment elevations or depressions X-rays interpreted by me (1pt min.). @ -Yes and demonstrates no acute process CT interpreted by me (1pt min.). @ -None done U/S interpreted by me (1pt. min.). @ -None done What testing was considered but not performed or refused? (CT, X-rays, U/S, labs)? Why? @ -None What meds were considered but not given or refused? Why? @ -None Did you discuss the management of the patient with other professionals (professionals i.e. JUAN Cheema, [employer], lab, RT, psych nurse, outreach and education social worker, small products ii assembler, teacher, ict help desk officer, safety and health manager)? Give summary @ -No Was smoking cessation discussed for >3mins.? @ -No Was critical care preformed (if so, how long)? @ -No Were there social determinants of health that impacted care today? How? (Homelessness, low income, unemployed, alcoholism, drug addiction, transportatio n, low edu. Level, literacy, decrease access to med. care, halfway, rehab)? @ -No Was there de-escalation of care discussed even if they declined (Discuss DNR or withdrawal of care, Hospice)? DNR status @ -No What co-morbidities impacted this encounter? (DM, HTN, Smoking, COPD, CAD, Cancer, CVA, ARF, Chemo, Hep., AIDS, mental health diagnosis, sleep apnea, morbid obesity)? @ -Lung cancer Was patient admitted / discharged? Hospital course, mention meds given and route, prescriptions, significant lab abnormalities, going to OR and other pertinent info. @ -Upon arrival patient was placed into room 5. A thorough history and physical exam was performed. Patient is completely pain-free and remained this way throughout her stay in the emergency department. 12 EKG was obtained which demonstrates no acute abnormalities. Laboratory studies are conducted. Troponi n is negative. I did request a complete a second troponin which the patient was agreeable. This remains negative. Patient's heart score is 1. Discussed the diagnosis, differential and treatment options. Patient is agreeable to discharge home at this time. Recommend that she keep a log of her blood pressure. Follow up with her primary care doctor and have stress testing performed. Return for any new or worsening symptoms. Patient was agreeable to this plan she was discharged in stable condition Undiagnosed new problem with uncertain prognosis? @ -Yes Drug Therapy requiring intensive monitoring for toxicity (Heparin, Nitro, Insulin, Cardizem)? @ -No Were any procedures done? @ -No Diagnosis/symptom? @ -Chest pain Acute, or Chronic, or Acute on Chronic? @ -Acute Uncomplicated (without systemic symptoms) or Complicated (systemic symptoms)? @ -Complicated Side effects of treatment? @ -No Exacerbation, Progression, or Severe Exacerbation? @ -No Poses a threat to life or bodily function? How? (Chest pain, [place], [place], pneumonia, PE, COPD, DKA, ARF, appy, cholecystitis, CVA, Diverticulitis, Homicidal, Suicidal, threat to staff... and all critical care pts) @ -No Disposition Clinical Impression: Chest pain Disposition: HOME SELF-CARE Condition: Stable Instructions (If sedation given, give patient instructions): Chest Pain (ED) Additional Instructions: I recommend that you call your primary care doctor to have further cardiac workup to include stress test. Return for any new or worsening symptoms Is patient prescribed a controlled substance at d/c from ED?: No Referrals: Hugo Morales MD [Primary Care Provider] - 1-2 days Time of Disposition: 01:01
[2023-01-24 01:12] VITALS: BP 152/99; PULSE 80
== END 2023-01-24 01:12 | disposition home or self-care (01) ==
LOC: EC 22:25
DX: R07.89 Other chest pain (principal); Z88.6 Allergy status to analgesic agent; Z88.8 Allergy status to other drugs, medicaments and biological substances; Z88.0 Allergy status to penicillin
CPT/HCPCS: 36415; 71046; 80053; 83690; 83735; 84484; 85025; 85610; 85730; 93005; 99285

== ENCOUNTER → 2023-02-27 | Outpatient (CLI) | payer OTHER ==
--- NOTE | 2023-02-27 10:34 | CA ---
Stress Echo Report Jennifer Brar Age: 62 Gender: F : 1960 Exam Date: 02/27/2023 09:18 Exam Location: [facility] Ht (in): 62 Wt (lb): 135 Ordering Physician: Hugo Morales MD Referring Physician: Hugo Morales MD Dog License Officer Supervisor: Geena Gallagher [facility] Technologist Procedure CPT: Indication: R07.9 CHEST PAIN ICD-9 Codes: Rhythm: Patient History: Atypical angina Cardiac Medications: Medications in past 24 hours: Contrast: Stress Results Protocol: Celso Total dose(mL): Exercise Duration (min:sec): 3:[address] Depression (mm): Angina Score: Horn Score: METS: 4.6 Resting HR: 112 Resting BP: 149 / 88 Peak HR: 164 Peak BP: 183 / 104 Max Predicted HR: 160 103 % Max Predicted HR Target HR: 136 Double Product: [id number] Stress Summary: The patient's target heart rate was achieved BP Response: Normal Reason for Termination: Reached target heart rate or work-load Cardiac Symptoms: Test terminated after reaching target heart rate (85% max predicted) ECG Analysis Resting ECG: Normal sinus rhythm with nonspecific ST segment depression of 0.5 cm in inferolateral leads. Heart rate 99 bpm Stress ECG: There is [address] depressions in inferolateral leads. This is consistent with exacerbation of baseline ST segment changes. Arrhythmia: Were no ectopic beats or sustained arrhythmias Echo Analysis Resting Echo: No obvious regional wall motion abnormality at rest Peak Echo Analysis: There is mild inferoseptal wall hypokinesia appreciated with peak stress. All other medical segments are thickening appropriately MEASUREMENTS (Male/Female) Normal Values CONCLUSIONS Poor exercise tolerance for age achieving only 4.6 metabolic equivalents Stress ECG is nondiagnostic for ischemia due to resting ST segment changes Mild hypokinesia of inferoseptal wall with peak stress Abnormal treadmill stress echocardiogram study Dr Chris Ramirez (Electronically Signed) Final Date: 27 February 2023 10:33
== END | disposition home or self-care (01) ==
LOC: RADNMMAIN 09:08
PROVIDERS: ATTEND Internal Medicine
DX: R07.9 Chest pain, unspecified (principal); R94.31 Abnormal electrocardiogram [ECG] [EKG]
CPT/HCPCS: 93351

== ENCOUNTER → 2023-03-08 | Outpatient (CLI) | payer OTHER ==
[2023-03-08 22:53] LABS: HCT 35.2 % (37.2-46.3); HGB 11.5 d/dL (12.0-15.0); MCH 32.8 pg (27.0-32.0); MCHC 32.7 d/dL (32.0-37.0); MCV 100.3 FL (80.0-97.0); Mean Platelet Volume 10.7 FL (9.5-12.2); NRBC Per 100 WBC 0 X 10*3/uL (0.00-0.01); Platelet Count 296 X 10*3/uL (140-440); RBC 3.51 X 10*6/uL (4.10-5.20); RDW 11.9 % (11.5-14.5); WBC 7.38 X 10*3/uL (4.50-10.00)
[2023-03-08 23:10] LABS: Blood Urea Nitrogen 11.3 mg/dL (9.0-27.0); Carbon Dioxide 27.8 mmol/L (21.6-31.8); Chloride 107 mmol/L (96-109); Sodium 146 mmol/L (135-145)
== END | disposition home or self-care (01) ==
LOC: LABPAT 10:40
PROVIDERS: ATTEND Internal Medicine Cardiovascular Disease
DX: Z01.812 Encounter for preprocedural laboratory examination (principal)
CPT/HCPCS: 80051; 82565; 84520; 85027

== ENCOUNTER 2023-03-12 07:54 | Day surgery (SDC) | payer OTHER ==
[2023-03-07 15:35] VITALS: BMI 24.7
[~2023-03-12 07:54] MED LIST changes: -ALBUTEROL NEB (CONC) 2.5 MG/0.5 ML INHALATION ONE; +ALPRAZolam 0.25 MG TAB PO PRN; +ALPRAZolam 0.5 MG TAB PO PRN; +ASPIRIN 325 MG TAB PO STA; +ATORVASTATIN 80 MG TAB PO STA; -DEXAMETHASONE SOD PHOSPHATE 4 MG/ML 1 ML VIAL IV ONE; +HEPARIN SODIUM,PORCINE (1 ML) 2,500 UNIT in SODIUM CHLORIDE 0.9% 250 ML IRRIGATION PRN; +HEPARIN SODIUM,PORCINE 10,000 UNIT in SODIUM CHLORIDE 0.9% 1,000 ML IRRIGATION PRN; -LIDOCAINE 1% (10MG/ML) FOR IV START INTRADERMA PRN; -LIDOCAINE 2% (PF) 20 MG/ML 5 ML VIAL INHALATION ONE; -LIDOCAINE VISCOUS 300 MG/15 ML CUP MUCOUS MEM ONE; +NITROGLYCERIN SL TABS 0.4 MG TAB SUBLINGUAL PRN; -SODIUM CHLORIDE 0.9% 1,000 ML IV SCH; +SODIUM CHLORIDE 0.9% 1,000 ML in EMPTY BAG 1 BAG IV SCH; -fentaNYL (PF) 50 MCG/ML 2 ML AMP IV PRN
[2023-03-12 08:22] VITALS: RESP 18; TEMP 98.2
[2023-03-12] MEDS ORDERED: HEPARIN SODIUM 1,000 UN/ML (10ML VL) ONE (08:57)
[2023-03-12] MEDS ORDERED: MIDAZOLAM 2 MG/2 ML VIAL IVP ONE (09:07)
[2023-03-12] MEDS ORDERED: ASPIRIN 325 MG TAB ONE (09:09)
[2023-03-12] MEDS ORDERED: ASPIRIN 325 MG TAB PO ONE (09:09)
[2023-03-12] MEDS ORDERED: LIDOCAINE 2% (PF) 20 MG/ML 5 ML VIAL SQ ONE (09:11)
[2023-03-12] MEDS ORDERED: fentaNYL (PF) 50 MCG/ML 2 ML AMP ONE (09:12)
[2023-03-12] MEDS: VERAPAMIL 2.5 MG/ML 2 ML AMP ONE ×2 (09:13→09:28)
[2023-03-12] MEDS ORDERED: fentaNYL (PF) 50 MCG/ML 2 ML AMP IVP ONE (09:14)
[2023-03-12] MEDS ORDERED: HEPARIN SODIUM 1,000 UN/ML (10ML VL) IVP ONE (09:20)
[2023-03-12] MEDS ORDERED: IOPAMIDOL-370 100ML BTL INJ ONE (09:31)
[2023-03-12] MEDS ORDERED: RX INFO: IV CONTRAST WAS GIVEN 1 EACH MISC MISCELLANE PRN (09:34)
[2023-03-12] MEDS ORDERED: SODIUM CHLORIDE 0.9% 1,000 ML IV SCH (09:45)
--- NOTE | 2023-03-12 09:57 | CC ---
CARDIAC CATHETERIZATION REPORT INDICATION: Chest pain with abnormal stress echo showing ischemia in the right coronary artery distribution. PROCEDURE NOTE: After obtaining informed consent, left heart catheterization and coronary angiogram were performed via the right radial artery using standard Refugio catheters. The patient tolerated the procedure well without any obvious immediate complications. The patient received moderate conscious sedation. Total sedation time was 15 minutes. Right radial artery access was obtained using Seldinger technique. A 6-Gibraltarian sheath was placed. Catheters and wires were floated into the ascending aorta under fluoroscopic guidance. The patient received verapamil and heparin per protocol. A TR band was used for hemostasis. FINDINGS: 1. HEMODYNAMICS: Left ventricular end-diastolic pressure is 8 to 10 mm. There is no significant gradient across the aortic valve. 2. LEFT VENTRICULOGRAM: Left ventriculogram is not performed. 3. ANGIOGRAPHIC DATA: a.Left main coronary artery: Left main coronary artery is a short vessel and is free of stenosis. Divides into left anterior descending coronary artery and circumflex coronary artery. b.LAD and its branches, circumflex coronary artery and its branches are free of significant stenosis. c.Right coronary artery is a large dominant vessel and is free of significant disease. CONCLUSIONS: 1. Normal coronary arteries. 2. Normal left ventricular end-diastolic pressure. 3. False-positive stress test. MMODL / IJN: [id number] /
--- NOTE | 2023-03-12 09:57 | LTR ---
Dear Hugo, I performed cardiac catheterization on Jennifer Brar. The detailed catheterization note is enclosed for records. In brief, cardiac catheterization revealed normal coronary arteries and patient's chest discomfort is noncardiac in origin and the stress test is a false-positive stress test. Thank you for giving me the privilege of participating in the care of this pleasant lady. Sincerely, JUSTINE / RANDYN: [id number] /
[2023-03-12 14:32] VITALS: BP 113/74; PULSE 78
== END 2023-03-12 14:00 | disposition home or self-care (01) ==
LOC: CATHCVL 07:54
PROVIDERS: ATTEND Internal Medicine Cardiovascular Disease
DX: I25.10 Atherosclerotic heart disease of native coronary artery without angina pectoris (principal); E78.5 Hyperlipidemia, unspecified; I10 Essential (primary) hypertension; F17.210 Nicotine dependence, cigarettes, uncomplicated; Z88.0 Allergy status to penicillin; Z82.49 Family history of ischemic heart disease and other diseases of the circulatory system; Z88.6 Allergy status to analgesic agent; Z79.899 Other long term (current) drug therapy
CPT/HCPCS: 93458; C1769 ×2; C1894; J2250; J3010; J1644; Q9967; J2001

== ENCOUNTER → 2023-05-02 | Outpatient (CLI) | payer OTHER ==
--- NOTE | 2023-05-02 13:04 | CT ---
EXAMINATION TYPE: CT chest w con DATE OF EXAM: 05/02/2023 COMPARISON: 09/10/2022 HISTORY: h/o lung CA, f/u right lobectomy last Novemeber CT DLP: 162.9 mGycm Automated exposure control for dose reduction was used. TECHNIQUE: CT scan of the chest is performed with IV Contrast, patient injected with 100 mL of Isovue 300. MIP Images are created on CT scanner and reviewed. 3D reconstructed images are created on an independent workstation and reviewed. FINDINGS: There are postsurgical changes of right upper lobe lobectomy. There are a few scattered nodular and g roundglass densities in both lungs which are stable with the exception of a single somewhat ill-defin ed density in the left upper lobe measuring 8 mm. Follow-up in 3 months is recommended to assess stab ility. There is mild emphysematous change. There is no airspace consolidation or abnormal interstitial densi ty. There is no pleural effusion, pleural thickening or pneumothorax. The heart and pulmonary vasculature appear normal. There is no mediastinal, hilar or axillary adenopa thy. No focal osseous lesions are seen. Limited scanning through the upper abdomen reveals no gross abnormality. IMPRESSION: 1. History of lung cancer with right upper lobe lobectomy. 2. 8mm ill-defined density in the left upper lobe. Follow-up in 3-4 months is recommended to confirm stability. 3. No mediastinal, hilar or axillary adenopathy. 4. No acute cardiopulmonary disease. 5. Mild emphysematous changes. 6. No focal osseous lesions.
== END | disposition home or self-care (01) ==
LOC: RADCTMAIN 11:58
PROVIDERS: ATTEND Internal Medicine Critical Care Medicine
DX: J43.9 Emphysema, unspecified (principal); R91.8 Other nonspecific abnormal finding of lung field; Z85.118 Personal history of other malignant neoplasm of bronchus and lung; Z90.2 Acquired absence of lung [part of]
CPT/HCPCS: 71260; Q9967

== ENCOUNTER → 2023-06-27 | Outpatient (CLI) | payer OTHER ==
--- NOTE | 2023-06-28 13:55 | XR ---
EXAMINATION TYPE: XR lumbar spine with bend/flex DATE OF EXAM: 06/27/2023 COMPARISON: None HISTORY: Prechemotherapy evaluation TECHNIQUE: 5 view lumbar spine FINDINGS: Minimal disc space narrowing L5-S1 is present. Remaining disc heights are preserved. Verteb ral body heights are preserved. Flexion and extension in the sagittal plane standing appears normal. No spondylolisthesis is evident. Facets have mild degenerative change. No spondylolytic defects are identified. In the frontal project ion there may be attempted sacralization of L5. IMPRESSION: 1. Minimal degenerative disc changes L5-S1.
== END | disposition home or self-care (01) ==
LOC: RADXRMAIN 13:54
PROVIDERS: ATTEND Pain Medicine Interventional Pain Medicine
DX: M51.17 Intervertebral disc disorders with radiculopathy, lumbosacral region (principal); M47.26 Other spondylosis with radiculopathy, lumbar region
CPT/HCPCS: 72114

== ENCOUNTER → 2023-08-22 | Outpatient (CLI) | payer OTHER ==
--- NOTE | 2023-08-24 20:42 | CT ---
EXAMINATION TYPE: CT chest w con DATE OF EXAM: 08/22/2023 COMPARISON: 05/02/2023 HISTORY: 62-year-old female C3 4.90 F/U lung CA TECHNIQUE: Contiguous axial scanning of the chest after the administration of 100 mL of Isovue 300. Coronal/sagittal reconstructions performed. CT DLP: 200mGycm. Automatic exposure control utilized for a dose reduction. FINDINGS: The heart is normal size without pericardial effusion. Aorta is normal caliber with conventional arthrosis of branching anatomy. No thoracic lymphadenopathy by size criteria. Small 6 mm right hilar lymph node is unchanged. Postsurgical change on the right, likely previous right upper lobectomy. There is mild to moderate em physematous change with a scattered strandy areas of scarring or atelectasis redemonstrated. No conso lidation or pleural effusion. No suspicious pulmonary nodule or mass is identified. A tiny 3 mm inferior lingular pulmonary nodule, axial image 40 remains unchanged. A 4 mm inferior lingular pulmonary nodule axial image 30 remains unchanged. Visualized upper abdomen shows a left upper pole renal cyst measuring 4.0 cm and slight nodular thick ening of the left adrenal gland which is unchanged. Bones: No osseous destructive process. IMPRESSION: 1. COPD with mild to moderate emphysema. Prior right upper lobectomy. 2. A couple small pulmonary nodules measuring up to 4 mm on the left remain unchanged suggesting a be nign etiology. No evidence for recurrent or metastatic disease.
== END | disposition home or self-care (01) ==
LOC: RADCTMAIN 12:02
PROVIDERS: ATTEND Internal Medicine Critical Care Medicine
DX: J44.9 Chronic obstructive pulmonary disease, unspecified (principal); C34.11 Malignant neoplasm of upper lobe, right bronchus or lung; J43.9 Emphysema, unspecified; R91.8 Other nonspecific abnormal finding of lung field; Z90.2 Acquired absence of lung [part of]
CPT/HCPCS: 71260; Q9967

== ENCOUNTER → 2024-04-19 | Outpatient (CLI) | payer OTHER ==
--- NOTE | 2024-04-20 09:09 | MM ---
Reason for Exam: Screening (asymptomatic). Last mammogram was performed 1 year(s) and 7 month(s) ago. Patient History: Menarche at age 11. First Full-Term at age 33. Late child-bearing (after 32). Postmenopausal. Risk Values: Tessa 5 year model risk: 2.2%. NCI Lifetime model risk: 10.6%. Prior Study Comparison: 08/21/2022 Bilateral MG screening mammo w CAD, [facility]. 09/03/2022 Right MG work up mamm w CAD RT, [facility]. Tissue Density: There are scattered areas of fibroglandular density. Findings: Analyzed By CAD. Right breast: There is no suspicious group of microcalcifications or new suspicious mass. Left breast: There is no suspicious group of microcalcifications or new suspicious mass. Overall Assessment: Negative, BI-RAD 1 Management: Screening Mammogram of both breasts in [address] [facility] will attempt to contact patient to return for supplemental views and ultrasound if indicated. Patient should continue monthly self-breast exams. A clinical breast exam by your physician is recommended on an annual basis. This exam should not preclude additional follow-up of suspicious palpable abnormalities. Note on Tessa scores and lifetime risk: 1. A Tessa score greater than 3% is considered moderate risk. If this is the case, consider specialist referral to assess eligibility for a risk reducing agent. 2. If overall lifetime risk for the development of breast cancer is 20% or higher, the patient may qualify for future screening with alternating mammogram and breast MRI. [facility], , 04/20/2024 9:03 AM. Electronically signed and approved by: Antonio Platt DO
== END | disposition home or self-care (01) ==
LOC: RADMAMWWP 12:07
PROVIDERS: ATTEND Internal Medicine
CPT/HCPCS: 77063; 77067

== ENCOUNTER → 2024-05-24 | Outpatient (CLI) | payer OTHER ==
--- NOTE | 2024-05-24 13:58 | CT ---
EXAMINATION TYPE: CT chest w con CT DLP: 228.4 mGycm, Automated exposure control for dose reduction was used. DATE OF EXAM: 05/24/2024 1:47 PM COMPARISON: CT chest 08/22/2023, 05/02/2023, 09/10/2022, 03/21/2022, PET CT 03/15/2022 CLINICAL INDICATION:Female, 63 years old with history of C34.90 LUNG CANCER; [facility], History of lung Ca. Right partial lobectomy 2021 TECHNIQUE: Multiple axial images were obtained through the chest following the administration of 100 cc of Isovue 300. . Coronal and sagittal reformats reviewed. FINDINGS: LUNGS/ PLEURA: No pleural effusion or pneumothorax. Postsurgical changes of the right lung, likely pr evious right upper lobectomy. Mild to moderate emphysematous change with scattered strandy areas of s carring and/or atelectasis redemonstrated. No focal consolidation. Stable tiny 3 mm inferior lingular calcified nodule. Stable groundglass nodular density within the left upper lung measuring 5.8 mm (se cristina 4, image 23). Marginal increase in size of left upper lobe 7.6 mm nodular opacity (series 4, ericka ge 21), previously measured 4.8 mm. AIRWAY: Patent and unremarkable.. HEART: Size within normal limits.No pericardial effusion.. MEDIASTINUM: No mediastinal adenopathy. Stable 6 mm right hilar lymph node. VASCULATURE: No aortic aneurysm. MUSCULOSKELETAL: No acute osseous abnormalities. Slight pectus excavatum. No aggressive osseous lesio n. SOFT TISSUES/LYMPH NODES: Unremarkable. LOWER NECK: No significant findings. UPPER ABDOMEN: Left upper pole renal cyst measuring up to 3.9 cm redemonstrated. Similar slight nodul ar thickening of the left adrenal gland. IMPRESSION: 1. Postsurgical changes from prior upper lobectomy. Marginal increase in size of a left upper lobe p ulmonary nodular density measuring up to 7.6 mm. Additional stable pulmonary nodules. Follow-up CT ch est in 3 months is recommended. 2. Mild COPD changes. [facility], , 05/24/2024 1:56 PM
== END | disposition home or self-care (01) ==
LOC: RADCTMAIN 13:22
PROVIDERS: ATTEND Internal Medicine Critical Care Medicine
DX: C34.90 Malignant neoplasm of unspecified part of unspecified bronchus or lung (principal); J44.9 Chronic obstructive pulmonary disease, unspecified; N28.1 Cyst of kidney, acquired; Z90.2 Acquired absence of lung [part of]
CPT/HCPCS: 71260; Q9967

== ENCOUNTER → 2024-11-26 | Outpatient (CLI) | payer OTHER ==
--- NOTE | 2024-11-26 13:48 | CT ---
EXAMINATION TYPE: CT chest w con CT DLP: 465 mGycm, Automated exposure control for dose reduction was used. DATE OF EXAM: 11/26/2024 1:26 PM COMPARISON: CT chest 05/24/2024, 08/22/2023, 05/02/2023, 09/10/2022. CLINICAL INDICATION:Female, 64 years old with history of C34.90 MALIGNANT NEOPLASM OF UNSP PART OF UN SP BRO; PHH, Follow up to lung CA TECHNIQUE: Multiple axial images were obtained through the chest following the administration of 100 cc of Isovue 300. . Coronal and sagittal reformats reviewed. FINDINGS: LUNGS/ PLEURA: No pleural effusion or pneumothorax. Postsurgical changes of the right lung, likely pr evious right upper lobectomy. Mild to moderate emphysematous change with scattered strandy areas of s carring and/or atelectasis redemonstrated. No focal consolidation. Stable tiny 3 mm inferior lingular calcified nodule. Stable groundglass nodular density within the left upper lobe measuring 5.5 mm (se cristina 4, image 24). Other previously seen left upper lobe groundglass pleura nodules no longer visuali zed. No new or enlarging pulmonary nodules. AIRWAY: Patent and unremarkable.. HEART: Size within normal limits.No pericardial effusion. No significant coronary arterial calcificat ions. MEDIASTINUM: No lymphadenopathy greater than 1 cm short axis. VASCULATURE: No aortic aneurysm. MUSCULOSKELETAL: No acute osseous abnormalities. Slight pectus excavatum. No aggressive osseous lesio n. SOFT TISSUES/LYMPH NODES: Unremarkable. LOWER NECK: No significant findings. UPPER ABDOMEN: Left upper pole simple appearing renal cyst measuring up to 3.9 cm redemonstrated. No follow-up recommended. Similar slight nodular thickening of the left adrenal gland. IMPRESSION: 1. Postsurgical changes from prior upper lobectomy. Stable left upper lobe 5.5 mm groundglass pulmon skylar nodule with resolution of previously seen 7.6 mm left upper lobe groundglass pulmonary nodule. No new or enlarging pulmonary nodules. Recommend follow-up CT chest in one year. 2. Mild COPD changes. [facility], , 11/26/2024 1:46 PM
== END | disposition home or self-care (01) ==
LOC: RADCTMAIN 12:48
PROVIDERS: ATTEND Internal Medicine Critical Care Medicine
DX: C34.90 Malignant neoplasm of unspecified part of unspecified bronchus or lung (principal); J44.9 Chronic obstructive pulmonary disease, unspecified; R91.1 Solitary pulmonary nodule; Z98.890 Other specified postprocedural states
CPT/HCPCS: 71260; Q9967